=== PATIENT | male | born 1950 | race Caucasian/White ===

== ENCOUNTER 2016-05-06 09:10 | Inpatient (IN) | payer MEDICARE ==
[~2016-05-06] VITALS: Ht 179.1 cm; Wt 68.9 kg
[2016-05-06] MEDS ORDERED: ALBU6.7H IH (10:35)
[2016-05-06 11:11] VITALS: BP 108/71
[2016-05-06] MEDS ORDERED: ASPI81TA2 PO (11:25)
[2016-05-06] MEDS ORDERED: ATOR40TA59 PO (11:26)
[2016-05-06] MEDS ORDERED: FOLI1TAB16 PO (11:26)
[2016-05-06] MEDS ORDERED: INSU100C SQ (11:27)
[2016-05-06] MEDS ORDERED: INSU100V8 SQ (11:28)
[2016-05-06] MEDS ORDERED: NAFC2FRO IV (11:29)
[2016-05-06] MEDS ORDERED: MELA3TAB PO (11:30)
[2016-05-06] MEDS ORDERED: METF10002 PO (11:31)
[2016-05-06] MEDS ORDERED: MIRT30TA3 PO (11:32)
[2016-05-06] MEDS ORDERED: MULT-208 PO (11:32)
[2016-05-06] MEDS ORDERED: NITR0.4T SL (11:33)
[2016-05-06] MEDS ORDERED: NYST15CR TP (11:34)
[2016-05-06] MEDS ORDERED: PANT40TA5 PO (11:34)
[2016-05-06] MEDS ORDERED: SAXA5TAB PO (11:35)
[2016-05-06] MEDS ORDERED: TAMS0.4C2 PO (11:36)
[2016-05-06] MEDS ORDERED: TIOT18CA IH (11:37)
[2016-05-06] MEDS ORDERED: THIA100T8 PO (11:37)
[2016-05-06] MEDS ORDERED: TRAZ100T12 PO (11:38)
[2016-05-06] MEDS ORDERED: ZINC57OI TP (11:40)
[2016-05-06] MEDS ORDERED: ALBUTEROL SULFATE 8GM INHALER. IH PRN (12:45)
[2016-05-06] MEDS ORDERED: NITROGLYCERIN SUBLINGUAL 0.4 MG BOTTLE OF 25. SL SCH (12:45)
[2016-05-06] MEDS ORDERED: ACETAMINOPHEN 650 MG TABLET.ER PO PRN (13:00)
[2016-05-06] MEDS ORDERED: ALBUTEROL SULFATE 2.5 MG/3 ML NEBU. NEB PRN (13:15)
[2016-05-06] MEDS ORDERED: ZINC OXIDE 20% TOPICAL OINTMENT 28GM TUBE. TP PRN (13:15)
[2016-05-06] MEDS ORDERED: IV NORMAL SALINE 250ML 250 ML ONE (15:37)
[2016-05-06] MEDS: NAFCILLIN 2 GM in IV NORMAL SALINE 100ML 100 ML IV SCH ×2 (15:42→20:35)
[2016-05-06] MEDS ORDERED: NAFCILLIN IN DEXTROSE ISO OSM IV SCH (16:00)
[2016-05-06] MEDS: IPRATRPIUM/ALBUTEROL 0.5/2.5MG 3 ML NEBU. NEB SCH ×2 (16:00→20:00)
[2016-05-06] MEDS ORDERED: [UNRECOGNIZED DRUG - OTHER] IV SCH (16:00)
[2016-05-06] MEDS: METFORMIN 500 MG TABLET. PO SCH (17:55)
[2016-05-06] MEDS: INSULIN ASPART 300 UNITS/3 ML INSULN.PEN SQ SCH (19:31)
[2016-05-06] MEDS: ATORVASTATIN CALCIUM 20 MG TABLET PO SCH (20:44)
[2016-05-06] MEDS: MIRTAZAPINE 30 MG TABLET PO SCH (20:44)
[2016-05-06] MEDS: traZODone 100 MG TABLET. PO SCH (20:44)
[2016-05-06] MEDS: MELATONIN 3 MG TABLET PO SCH (20:45)
[2016-05-06] MEDS: NYSTATIN 100,000 UNIT/GM TOPICAL CREAM 15GM TUBE. TP SCH (20:45)
[2016-05-06] MEDS: INSULIN DETEMIR 300 UNITS/3 ML INSULN.PEN. SQ SCH (20:49)
[2016-05-06 23:25] VITALS: BP 108/65
[2016-05-07] MEDS: NAFCILLIN 2 GM in IV NORMAL SALINE 100ML 100 ML IV SCH ×7 (00:42→23:53)
[2016-05-07] MEDS: IPRATRPIUM/ALBUTEROL 0.5/2.5MG 3 ML NEBU. NEB SCH ×4 (05:59→20:00)
[2016-05-07] MEDS: PANTOPRAZOLE 40 MG TABLET. PO SCH (06:02)
[2016-05-07 06:10] VITALS: BP 97/66
[2016-05-07] MEDS ORDERED: ALTEPLASE 2 MG VIAL INT CAT ONE (07:30)
[2016-05-07] MEDS: INSULIN ASPART 300 UNITS/3 ML INSULN.PEN SQ SCH ×3 (07:30→16:30)
[2016-05-07] MEDS: ASPIRIN 81 MG TAB.CHEW PO SCH (08:36)
[2016-05-07] MEDS: FOLIC ACID 1 MG TABLET PO SCH (08:36)
[2016-05-07] MEDS: TAMSULOSIN 0.4 MG CAP.ER.24H. PO SCH (08:36)
[2016-05-07] MEDS: THIAMINE 100 MG TABLET. PO SCH (08:36)
[2016-05-07] MEDS: METFORMIN 500 MG TABLET. PO SCH ×2 (08:36→16:26)
[2016-05-07] MEDS: LINAGLIPTIN 5 MG TABLET PO SCH (08:36)
[2016-05-07 08:58] LABS: BASO % 0 % (0-3); EOS # 0.4 x10^3/uL (0.0-0.7); EOS % 4 % (0-3); HEMATOCRIT 27.9 % (39.0-53.0); HEMOGLOBIN 9.5 g/dL (13.0-17.5); LYMPH % 31 % (24-48); MEAN CORPUSCULAR HEMOGLOBIN 34 pg (25-35); MEAN CORPUSCULAR HGB CONC 34 g/dL (31-37); MEAN CORPUSCULAR VOLUME 98 fL (79-100); MONO # 1.1 x10^3/uL (0.0-1.1); MONO % 11 % (0-9); NEUT # 5.2 x10^3uL (1.8-7.7); NEUT % 54 % (31-73); PLATELET COUNT 356 x10^3/uL (140-400); RED BLOOD COUNT 2.84 x10^6/uL (4.30-5.70); RED CELL DISTRIBUTION WIDTH 14.2 % (11.5-14.5); WHITE BLOOD COUNT 9.7 x10^3/uL (4.0-11.0)
[2016-05-07] MEDS: NYSTATIN 100,000 UNIT/GM TOPICAL CREAM 15GM TUBE. TP SCH ×2 (09:00→19:49)
[2016-05-07 09:24] LABS: ALBUMIN 1.7 g/dL (3.4-5.0); ALBUMIN/GLOBULIN RATIO 0.3 (1.0-1.7); CALCIUM 7.7 mg/dL (8.5-10.1); CREATININE 0.9 mg/dL (0.7-1.3); GFR 84.7; MAGNESIUM 1.3 mg/dL (1.8-2.4); POTASSIUM 3.1 mmol/L (3.5-5.1); TOTAL BILIRUBIN 0.4 mg/dL (0.2-1.0); TOTAL PROTEIN 7.3 g/dL (6.4-8.2)
--- NOTE | 2016-05-07 11:59 | HP ---
ADMIT DATE: 05/06/2016 SWING BED HISTORY AND PHYSICAL HISTORY OF PRESENT ILLNESS: This is a 65-year-old male who came over to the swing bed status on 05/06/2016. I also saw him yesterday on 05/06/2016. He has come with status post MSSA bacteremia with necrotizing pneumonia. He requires another 2 weeks Nafcillin IV and has come over for that as well as physical therapy. His chart was reviewed and his care was discussed with the nursing staff and the patient. Stop date for his nafcillin is 05/21/2016. PAST MEDICAL HISTORY: MSSA bacteremia; hypertension; impotence; reflux; type 2 diabetes; nicotine dependence; hepatitis C; tinea pedis; malnutrition; remote history of alcoholism; remote history of other substance abuse; stage 2 pressure ulcer on his sacrum, which has healed evidently; and insomnia. Also poor dentition. ALLERGIES: AZITHROMYCIN. MEDICATIONS: Reviewed by myself and are available on the MAR. REVIEW OF SYSTEMS: The patient states he started to feel pretty good. He did have a long road back from his illness, but he is not very happy about having to be here, for 2 weeks of antibiotics and was somewhat uncooperative with PT and OT. Has no specific complaints currently. OBJECTIVE: VITAL SIGNS: Blood pressure is 108/71, pulse 120, temperature 98.2, pulse ox is 94% on room air. GENERAL: The patient is seated and was ambulating in the garner previously. HEENT: His hearing is normal. His eyes are clear. His nose is patent. His throat was clear. He has several teeth missing and in poor condition. NECK: Supple, without adenopathy. LUNGS: Clear to auscultation. CARDIOVASCULAR: Rapid rhythm and rate. The patient states he has always had a rapid pulse. ABDOMEN: Soft, nontender. EXTREMITIES: Without edema. Sacral area has a healed pressure ulcer with no open areas. NEUROLOGIC: He is intact. Mood is appropriate. He has PICC line in place. ASSESSMENT: 1. Methicillin-sensitive Staphylococcus aureus bacteremia. 2. Necrotizing pneumonia. 3. Insomnia. 4. Malnutrition. 5. Type 2 diabetes. 6. Tachycardia, chronic. 7. Insomnia. 8. Malnutrition. 9. Alcoholism and has been without a drink now for over a month. PLAN: Continue IV therapy, physical therapy, monitor him for other problems. VALERIANO ALEJANDRO DO DR: Sg JOB#: [id number] / [id number]
[2016-05-07] MEDS: MAGNESIUM OXIDE 400 MG TABLET PO SCH ×2 (12:26→16:26)
[2016-05-07] MEDS: POTASSIUM CHLORIDE 20 MEQ TABLET.ER. PO SCH ×2 (12:26→16:26)
[2016-05-07 14:40] VITALS: BP 110/76
[2016-05-07] MEDS: traZODone 100 MG TABLET. PO SCH (19:47)
[2016-05-07] MEDS: MIRTAZAPINE 30 MG TABLET PO SCH (19:47)
[2016-05-07] MEDS: ATORVASTATIN CALCIUM 20 MG TABLET PO SCH (19:48)
[2016-05-07] MEDS: MELATONIN 3 MG TABLET PO SCH (19:49)
[2016-05-07] MEDS: INSULIN DETEMIR 300 UNITS/3 ML INSULN.PEN. SQ SCH (19:49)
[2016-05-08] MEDS ORDERED: IV NORMAL SALINE 250ML 250 ML ONE (01:24)
[2016-05-08] MEDS: NAFCILLIN 2 GM in IV NORMAL SALINE 100ML 100 ML IV SCH ×5 (04:09→20:33)
[2016-05-08 05:23] VITALS: BP 118/75
[2016-05-08] MEDS: IPRATRPIUM/ALBUTEROL 0.5/2.5MG 3 ML NEBU. NEB SCH ×4 (05:41→20:00)
[2016-05-08] MEDS: PANTOPRAZOLE 40 MG TABLET. PO SCH (05:50)
[2016-05-08 06:31] LABS: CALCIUM 7.6 mg/dL (8.5-10.1); CREATININE 0.9 mg/dL (0.7-1.3); GFR 84.7; MAGNESIUM 1.2 mg/dL (1.8-2.4); POTASSIUM 3.8 mmol/L (3.5-5.1)
[2016-05-08] MEDS ORDERED: MAGNESIUM SULFATE 2GM 50 ML IV ONE (08:00)
[2016-05-08] MEDS: TAMSULOSIN 0.4 MG CAP.ER.24H. PO SCH (08:17)
[2016-05-08] MEDS: ASPIRIN 81 MG TAB.CHEW PO SCH (08:17)
[2016-05-08] MEDS: THIAMINE 100 MG TABLET. PO SCH (08:17)
[2016-05-08] MEDS: LINAGLIPTIN 5 MG TABLET PO SCH (08:17)
[2016-05-08] MEDS: FOLIC ACID 1 MG TABLET PO SCH (08:18)
[2016-05-08] MEDS: METFORMIN 500 MG TABLET. PO SCH ×2 (08:18→16:45)
[2016-05-08] MEDS: NYSTATIN 100,000 UNIT/GM TOPICAL CREAM 15GM TUBE. TP SCH ×2 (08:19→20:34)
[2016-05-08] MEDS: INSULIN ASPART 300 UNITS/3 ML INSULN.PEN SQ SCH ×3 (08:29→16:49)
[2016-05-08] MEDS: POTASSIUM CHLORIDE 20 MEQ TABLET.ER. PO SCH ×2 (11:56→16:44)
[2016-05-08] MEDS: MAGNESIUM OXIDE 400 MG TABLET PO SCH ×2 (11:56→16:45)
[2016-05-08 19:53] VITALS: BP 118/77
[2016-05-08] MEDS: MIRTAZAPINE 30 MG TABLET PO SCH (20:33)
[2016-05-08] MEDS: traZODone 100 MG TABLET. PO SCH (20:33)
[2016-05-08] MEDS: ATORVASTATIN CALCIUM 20 MG TABLET PO SCH (20:33)
[2016-05-08] MEDS: MELATONIN 3 MG TABLET PO SCH (20:33)
[2016-05-08] MEDS: INSULIN DETEMIR 300 UNITS/3 ML INSULN.PEN. SQ SCH (20:34)
[2016-05-09] MEDS: NAFCILLIN 2 GM in IV NORMAL SALINE 100ML 100 ML IV SCH ×7 (00:16→23:33)
[2016-05-09] MEDS: PANTOPRAZOLE 40 MG TABLET. PO SCH (05:51)
[2016-05-09 06:06] VITALS: BP 115/71
[2016-05-09] MEDS: IPRATRPIUM/ALBUTEROL 0.5/2.5MG 3 ML NEBU. NEB SCH ×4 (08:00→20:00)
[2016-05-09] MEDS: METFORMIN 500 MG TABLET. PO SCH ×2 (08:05→16:48)
[2016-05-09] MEDS: INSULIN ASPART 300 UNITS/3 ML INSULN.PEN SQ SCH ×3 (08:18→16:50)
[2016-05-09] MEDS: MAGNESIUM OXIDE 400 MG TABLET PO SCH ×2 (09:51→16:48)
[2016-05-09] MEDS: LINAGLIPTIN 5 MG TABLET PO SCH (09:51)
[2016-05-09] MEDS: ASPIRIN 81 MG TAB.CHEW PO SCH (09:52)
[2016-05-09] MEDS: POTASSIUM CHLORIDE 20 MEQ TABLET.ER. PO SCH ×2 (09:53→16:48)
[2016-05-09] MEDS: THIAMINE 100 MG TABLET. PO SCH (09:53)
[2016-05-09] MEDS: TAMSULOSIN 0.4 MG CAP.ER.24H. PO SCH (09:53)
[2016-05-09] MEDS: FOLIC ACID 1 MG TABLET PO SCH (09:53)
[2016-05-09] MEDS: NYSTATIN 100,000 UNIT/GM TOPICAL CREAM 15GM TUBE. TP SCH ×2 (09:53→20:22)
[2016-05-09] MEDS: BENZOCAINE/MENTHOL LOZENGE 16'S BOX. PO PRN ×2 (09:56→21:41)
[2016-05-09 11:10] VITALS: BP 145/78
[2016-05-09 20:09] VITALS: BP 105/71
[2016-05-09] MEDS: MIRTAZAPINE 30 MG TABLET PO SCH (20:21)
[2016-05-09] MEDS: MELATONIN 3 MG TABLET PO SCH (20:21)
[2016-05-09] MEDS: ATORVASTATIN CALCIUM 20 MG TABLET PO SCH (20:21)
[2016-05-09] MEDS: traZODone 100 MG TABLET. PO SCH (20:22)
[2016-05-09] MEDS: INSULIN DETEMIR 300 UNITS/3 ML INSULN.PEN. SQ SCH (20:31)
[2016-05-09] MEDS: CALCIUM CARBONATE 500 MG TAB.CHEW PO PRN (23:23)
[2016-05-09] MEDS ORDERED: IV NORMAL SALINE 100ML 100 ML ONE (23:50)
[2016-05-10] MEDS: NAFCILLIN 2 GM in IV NORMAL SALINE 100ML 100 ML IV SCH ×6 (01:38→23:23)
[2016-05-10] MEDS: PANTOPRAZOLE 40 MG TABLET. PO SCH (05:51)
[2016-05-10 06:31] VITALS: BP 113/74
[2016-05-10] MEDS: IPRATRPIUM/ALBUTEROL 0.5/2.5MG 3 ML NEBU. NEB SCH ×4 (07:06→20:00)
[2016-05-10] MEDS: THIAMINE 100 MG TABLET. PO SCH (08:18)
[2016-05-10] MEDS: LINAGLIPTIN 5 MG TABLET PO SCH (08:18)
[2016-05-10] MEDS: ASPIRIN 81 MG TAB.CHEW PO SCH (08:18)
[2016-05-10] MEDS: METFORMIN 500 MG TABLET. PO SCH ×2 (08:18→16:18)
[2016-05-10] MEDS: FOLIC ACID 1 MG TABLET PO SCH (08:19)
[2016-05-10] MEDS: NYSTATIN 100,000 UNIT/GM TOPICAL CREAM 15GM TUBE. TP SCH ×2 (08:19→19:45)
[2016-05-10] MEDS: TAMSULOSIN 0.4 MG CAP.ER.24H. PO SCH (08:19)
[2016-05-10] MEDS: INSULIN ASPART 300 UNITS/3 ML INSULN.PEN SQ SCH ×4 (08:24→16:30)
[2016-05-10 10:47] LABS: ALBUMIN 1.8 g/dL (3.4-5.0); ALBUMIN/GLOBULIN RATIO 0.3 (1.0-1.7); CREATININE 0.8 mg/dL (0.7-1.3); MAGNESIUM 1.5 mg/dL (1.8-2.4); POTASSIUM 4.1 mmol/L (3.5-5.1); TOTAL BILIRUBIN 0.5 mg/dL (0.2-1.0); TOTAL PROTEIN 7.5 g/dL (6.4-8.2)
[2016-05-10] MEDS: MAGNESIUM OXIDE 400 MG TABLET PO SCH ×2 (11:58→16:18)
[2016-05-10] MEDS: POTASSIUM CHLORIDE 20 MEQ TABLET.ER. PO SCH ×2 (11:58→16:18)
[2016-05-10] MEDS: GUAIFENESIN DM 600/30MG TAB.ER.12H. PO SCH ×2 (12:38→19:43)
[2016-05-10 15:11] VITALS: BP 99/70
[2016-05-10 19:41] VITALS: BP 115/73
[2016-05-10] MEDS: MELATONIN 3 MG TABLET PO SCH (19:43)
[2016-05-10] MEDS: traZODone 100 MG TABLET. PO SCH (19:43)
[2016-05-10] MEDS: ATORVASTATIN CALCIUM 20 MG TABLET PO SCH (19:43)
[2016-05-10] MEDS: MIRTAZAPINE 30 MG TABLET PO SCH (19:44)
[2016-05-10] MEDS: INSULIN DETEMIR 300 UNITS/3 ML INSULN.PEN. SQ SCH (19:49)
[2016-05-10] MEDS ORDERED: IV NORMAL SALINE 100ML 100 ML ONE (23:20)
--- NOTE | 2016-05-11 01:00 | PN ---
DATE: 05/10/2016 SUBJECTIVE: This is a 65-year-old male who is on swing bed status for IV antibiotics for MSSA bacteremia. He has been somewhat uncooperative, refusing insulin and such, but he has been complaining of a sore throat and his strep screen was negative. Certainly, the antibiotic that he is on nafcillin would cover his strep throat, and I did explain that to him. He was also on multiple other antibiotics while he was hospitalized. He has been having some problems with low magnesium as well and is being rechecked today. He received some IV magnesium yesterday and was started on p.o. magnesium on the . OBJECTIVE: VITAL SIGNS: Temperature is 98.7, pulse 101, blood pressure 113/74, pulse ox is 95% on room air. GENERAL: The patient does not appear ill. HEENT: His posterior pharynx has a little bit of postnasal drip, otherwise not red or inflamed. No exudate. NECK: Supple. There is no adenopathy. LUNGS: Clear. CARDIOVASCULAR: Mildly regular rhythm and rate. Mildly tachycardic. This was not new. LABORATORY DATA: His magnesium today is 1.5. Glucoses are in mid 100s and strep screen negative. ASSESSMENT: 1. Viral pharyngitis. 2. Postnasal drip. 3. Noncompliance with regimen. 4. Methicillin susceptible Staphylococcus aureus bacteremia on nafcillin until 05/21/2016. 5. Hypomagnesemia. PLAN: Mucinex DM, throat lozenges if he needs it. Replace his magnesium. Place his magnesium, encourage him to follow up with the current plan of care. VALERIANO ALEJANDRO DO DR: AIDA/lesvia JOB#: [id number] / [id number]
[2016-05-11] MEDS: NAFCILLIN 2 GM in IV NORMAL SALINE 100ML 100 ML IV SCH ×5 (03:54→19:56)
[2016-05-11 05:03] VITALS: BP 108/73
[2016-05-11] MEDS: PANTOPRAZOLE 40 MG TABLET. PO SCH (05:26)
[2016-05-11] MEDS: INSULIN ASPART 300 UNITS/3 ML INSULN.PEN SQ SCH ×3 (07:30→16:30)
[2016-05-11] MEDS: IPRATRPIUM/ALBUTEROL 0.5/2.5MG 3 ML NEBU. NEB SCH ×4 (08:00→20:00)
[2016-05-11] MEDS: LINAGLIPTIN 5 MG TABLET PO SCH (09:22)
[2016-05-11] MEDS: TAMSULOSIN 0.4 MG CAP.ER.24H. PO SCH (09:22)
[2016-05-11] MEDS: NYSTATIN 100,000 UNIT/GM TOPICAL CREAM 15GM TUBE. TP SCH ×2 (09:22→19:57)
[2016-05-11] MEDS: METFORMIN 500 MG TABLET. PO SCH ×2 (09:22→16:52)
[2016-05-11] MEDS: ASPIRIN 81 MG TAB.CHEW PO SCH (09:23)
[2016-05-11] MEDS: FOLIC ACID 1 MG TABLET PO SCH (09:23)
[2016-05-11] MEDS: MAGNESIUM OXIDE 400 MG TABLET PO SCH ×2 (09:23→16:52)
[2016-05-11] MEDS: POTASSIUM CHLORIDE 20 MEQ TABLET.ER. PO SCH ×2 (09:23→16:52)
[2016-05-11] MEDS: THIAMINE 100 MG TABLET. PO SCH (09:23)
[2016-05-11] MEDS: GUAIFENESIN DM 600/30MG TAB.ER.12H. PO SCH ×2 (09:23→19:53)
[2016-05-11] MEDS ORDERED: IV NORMAL SALINE 250ML 250 ML ONE (12:25)
[2016-05-11 19:20] VITALS: BP 111/77
[2016-05-11] MEDS: CALCIUM CARBONATE 500 MG TAB.CHEW PO PRN (19:53)
[2016-05-11] MEDS: traZODone 100 MG TABLET. PO SCH (19:54)
[2016-05-11] MEDS: MELATONIN 3 MG TABLET PO SCH (19:54)
[2016-05-11] MEDS: MIRTAZAPINE 30 MG TABLET PO SCH (19:54)
[2016-05-11] MEDS: ATORVASTATIN CALCIUM 20 MG TABLET PO SCH (19:54)
[2016-05-11] MEDS: INSULIN DETEMIR 300 UNITS/3 ML INSULN.PEN. SQ SCH (19:57)
[2016-05-12] MEDS: NAFCILLIN 2 GM in IV NORMAL SALINE 100ML 100 ML IV SCH ×7 (00:23→23:54)
[2016-05-12] MEDS: PANTOPRAZOLE 40 MG TABLET. PO SCH (04:20)
[2016-05-12 05:02] VITALS: BP 101/71
[2016-05-12 06:23] LABS: HEMATOCRIT 28.2 % (39.0-53.0); HEMOGLOBIN 9.6 g/dL (13.0-17.5); RED BLOOD COUNT 2.88 x10^6/uL (4.30-5.70); RED CELL DISTRIBUTION WIDTH 14.8 % (11.5-14.5); WHITE BLOOD COUNT 10.2 x10^3/uL (4.0-11.0)
[2016-05-12 06:45] LABS: ALBUMIN 1.7 g/dL (3.4-5.0); ALBUMIN/GLOBULIN RATIO 0.3 (1.0-1.7); CREATININE 0.9 mg/dL (0.7-1.3); GFR 84.7; MAGNESIUM 1.3 mg/dL (1.8-2.4); POTASSIUM 3.5 mmol/L (3.5-5.1); TOTAL BILIRUBIN 0.5 mg/dL (0.2-1.0)
[2016-05-12] MEDS ORDERED: MAGNESIUM SULFATE 2GM 50 ML IV ONE ×2 (07:15→07:45)
[2016-05-12] MEDS: INSULIN ASPART 300 UNITS/3 ML INSULN.PEN SQ SCH ×3 (07:30→16:30)
[2016-05-12] MEDS: IPRATRPIUM/ALBUTEROL 0.5/2.5MG 3 ML NEBU. NEB SCH ×4 (08:00→20:00)
[2016-05-12] MEDS: TAMSULOSIN 0.4 MG CAP.ER.24H. PO SCH (08:12)
[2016-05-12] MEDS: LINAGLIPTIN 5 MG TABLET PO SCH (08:12)
[2016-05-12] MEDS: ASPIRIN 81 MG TAB.CHEW PO SCH (08:12)
[2016-05-12] MEDS: METFORMIN 500 MG TABLET. PO SCH ×2 (08:12→16:39)
[2016-05-12] MEDS: FOLIC ACID 1 MG TABLET PO SCH (08:12)
[2016-05-12] MEDS: THIAMINE 100 MG TABLET. PO SCH (08:12)
[2016-05-12] MEDS: GUAIFENESIN DM 600/30MG TAB.ER.12H. PO SCH ×2 (08:12→20:25)
[2016-05-12] MEDS: NYSTATIN 100,000 UNIT/GM TOPICAL CREAM 15GM TUBE. TP SCH ×2 (08:13→20:25)
[2016-05-12] MEDS: POTASSIUM CHLORIDE 20 MEQ TABLET.ER. PO SCH ×2 (11:37→16:40)
[2016-05-12] MEDS: MAGNESIUM OXIDE 400 MG TABLET PO SCH ×2 (11:37→16:40)
[2016-05-12] MEDS: CALCIUM CARBONATE 500 MG TAB.CHEW PO PRN (19:13)
[2016-05-12 19:17] VITALS: BP 100/65
[2016-05-12] MEDS: MELATONIN 3 MG TABLET PO SCH (20:25)
[2016-05-12] MEDS: MIRTAZAPINE 30 MG TABLET PO SCH (20:25)
[2016-05-12] MEDS: traZODone 100 MG TABLET. PO SCH (20:25)
[2016-05-12] MEDS: ATORVASTATIN CALCIUM 20 MG TABLET PO SCH (20:25)
[2016-05-12] MEDS: INSULIN DETEMIR 300 UNITS/3 ML INSULN.PEN. SQ SCH (21:00)
--- NOTE | 2016-05-12 21:41 | PN ---
DATE: 05/12/2016 SUBJECTIVE: The patient is resting, slightly propped up in bed, sleeping comfortably in no apparent distress. On questioning him, he denied any complaint. The nursing staff stated that his magnesium was low this morning at 1.3 mg/dL and was given 2 grams of magnesium sulfate. He is already on magnesium oxide 400 mg twice a day. The patient himself denied any complaint. OBJECTIVE: GENERAL: When I examined him, he was resting flat, slightly propped up in bed, in no apparent distress. He was slightly pale, but no jaundice, cyanosis, or thyromegaly. No jugular venous distention. No limb edema. VITAL SIGNS: His heart rate was 81, blood pressure was 101/71, temperature was 98.3, respiratory rate was 18, and oxygen saturation was 100% on room air. The rest of clinical examination is unremarkable. His intake over the last 24 hours was 1660, output was 1800. LABORATORY DATA: As of this morning, his white cell count was 10,200, hemoglobin 9.6, hematocrit 28.2, MCV 98 and platelet count of 466,000. His chemistry showed a serum sodium 138, potassium 3.5, chloride 103, bicarbonate 30, anion gap of 5, BUN 6, creatinine 0.9. Estimated GFR was 85 mL per minute. His glucose 151, calcium was 8, magnesium was 1.3. Total bilirubin, AST, ALT, alkaline phosphatase were normal. His total protein was 7, albumin was 1.7. ASSESSMENT: 1. Methicillin-sensitive Staphylococcus aureus bacteremia for which he continues to be on nafcillin 2 grams IV every 4 hours. 2. Necrotizing pneumonitis. 3. Type 2 diabetes mellitus. 4. Severe protein-calorie malnutrition. His serum albumin is only 1.7. 5. Alcoholism. 6. Severe hypomagnesemia. His serum magnesium is only 1.3. PLAN: My plan is to repeat his lab work as ordered by his primary care physician at the [facility]. I will add also TSH, serum protein, prothrombin time and ammonia. MAULIK HERNANDES MD DR: GABRIELLA/lesvia JOB#: [id number] / [id number]
[2016-05-12] MEDS ORDERED: IV NORMAL SALINE 100ML 100 ML ONE (23:47)
[2016-05-13] MEDS: NAFCILLIN 2 GM in IV NORMAL SALINE 100ML 100 ML IV SCH ×6 (03:56→23:37)
[2016-05-13 04:59] LABS: BASO # 0.1 x10^3/uL (0.0-0.2); BASO % 1 % (0-3); EOS # 0.4 x10^3/uL (0.0-0.7); EOS % 5 % (0-3); HEMATOCRIT 27.8 % (39.0-53.0); HEMOGLOBIN 9.4 g/dL (13.0-17.5); LYMPH # 4.3 x10^3/uL (1.0-4.8); LYMPH % 52 % (24-48); MEAN CORPUSCULAR HEMOGLOBIN 34 pg (25-35); MEAN CORPUSCULAR HGB CONC 34 g/dL (31-37); MEAN CORPUSCULAR VOLUME 99 fL (79-100); MONO # 0.9 x10^3/uL (0.0-1.1); MONO % 11 % (0-9); NEUT # 2.5 x10^3uL (1.8-7.7); NEUT % 30 % (31-73); PLATELET COUNT 422 x10^3/uL (140-400); RED BLOOD COUNT 2.82 x10^6/uL (4.30-5.70); RED CELL DISTRIBUTION WIDTH 15.2 % (11.5-14.5); WHITE BLOOD COUNT 8.2 x10^3/uL (4.0-11.0)
[2016-05-13 05:06] VITALS: BP 115/70
[2016-05-13 05:14] LABS: ALBUMIN 1.7 g/dL (3.4-5.0); ALBUMIN/GLOBULIN RATIO 0.3 (1.0-1.7); C REACTIVE PROTEIN 16.4 mg/L (0-3.3); CALCIUM 7.8 mg/dL (8.5-10.1); CREATININE 0.8 mg/dL (0.7-1.3); POTASSIUM 4.2 mmol/L (3.5-5.1); TOTAL BILIRUBIN 0.5 mg/dL (0.2-1.0)
[2016-05-13] MEDS: PANTOPRAZOLE 40 MG TABLET. PO SCH ×3 (05:25→20:32)
[2016-05-13 05:57] LABS: SEDIMENTATION RATE 98 (0-15)
[2016-05-13] MEDS: INSULIN ASPART 300 UNITS/3 ML INSULN.PEN SQ SCH ×2 (07:30→11:30)
[2016-05-13] MEDS: IPRATRPIUM/ALBUTEROL 0.5/2.5MG 3 ML NEBU. NEB SCH ×4 (08:00→20:00)
[2016-05-13] MEDS: MAGNESIUM OXIDE 400 MG TABLET PO SCH ×2 (08:58→16:51)
[2016-05-13] MEDS: THIAMINE 100 MG TABLET. PO SCH (08:58)
[2016-05-13] MEDS: METFORMIN 500 MG TABLET. PO SCH ×2 (08:58→16:51)
[2016-05-13] MEDS: POTASSIUM CHLORIDE 20 MEQ TABLET.ER. PO SCH ×2 (08:58→16:52)
[2016-05-13] MEDS: TAMSULOSIN 0.4 MG CAP.ER.24H. PO SCH (08:58)
[2016-05-13] MEDS: GUAIFENESIN DM 600/30MG TAB.ER.12H. PO SCH ×2 (08:58→19:56)
[2016-05-13] MEDS: FOLIC ACID 1 MG TABLET PO SCH (08:59)
[2016-05-13] MEDS: ASPIRIN 81 MG TAB.CHEW PO SCH (08:59)
[2016-05-13] MEDS: LINAGLIPTIN 5 MG TABLET PO SCH (08:59)
[2016-05-13] MEDS: NYSTATIN 100,000 UNIT/GM TOPICAL CREAM 15GM TUBE. TP SCH ×2 (09:00→19:55)
[2016-05-13] MEDS: CALCIUM CARBONATE 500 MG TAB.CHEW PO PRN (09:00)
[2016-05-13 10:54] VITALS: BP 102/70
[2016-05-13] MEDS ORDERED: IV NORMAL SALINE 250ML 250 ML ONE (19:45)
[2016-05-13] MEDS: MIRTAZAPINE 30 MG TABLET PO SCH (19:56)
[2016-05-13] MEDS: ATORVASTATIN CALCIUM 20 MG TABLET PO SCH (19:56)
[2016-05-13] MEDS: MELATONIN 3 MG TABLET PO SCH (19:56)
[2016-05-13] MEDS: traZODone 100 MG TABLET. PO SCH (19:56)
[2016-05-13 20:00] VITALS: BP 129/81
--- NOTE | 2016-05-14 01:07 | PN ---
DATE: 05/13/2016 SUBJECTIVE: The patient was seen today for multiple complaints including heartburn that is not completely resolved. He also has been refusing his insulin and his magnesium was low and was given magnesium sulfate. OBJECTIVE: GENERAL: On examining him, he looked well and was clearly in no apparent respiratory distress, slightly pale, but no jaundice, cyanosis or thyromegaly. No jugular venous distention. No limb edema. VITAL SIGNS: His heart rate was 115, blood pressure was 102/70, temperature was 98.1, respiratory rate was 20 and oxygen saturation was 99%. HEAD, EYES, EARS, NOSE AND THROAT: Normocephalic, atraumatic. NECK: Supple. HEART: Showed normal first and second heart sounds with no gallop, rub or murmur. CHEST: Clear to auscultation. No crepitation or rhonchi. ABDOMEN: Distended, soft, nontender. No guarding or rigidity. No organomegaly. Hernial orifices intact. Bowel sounds normal. NEUROLOGIC: He was awake, alert, responding appropriately. Cranial nerves intact. He moves extremities without difficulty, ambulates without assistance or assistive devices. LABORATORY DATA: His blood sugar seems to be well controlled on metformin and Tradjenta. He did receive 2 grams of magnesium sulfate and he is now on magnesium oxide 400 mg 3 times a day. PLAN: My plan is to increase his Protonix to twice a day and add 2 tablets after meals. I will check hemoglobin A1c, magnesium and TSH. As he has persistent tachycardia, we will decide on further management accordingly. MAULIK HERNANDES MD DR: GABRIELLA/lesvia JOB#: [id number] / [id number]
[2016-05-14] MEDS: NAFCILLIN 2 GM in IV NORMAL SALINE 100ML 100 ML IV SCH ×6 (04:00→23:57)
[2016-05-14] MEDS: IPRATRPIUM/ALBUTEROL 0.5/2.5MG 3 ML NEBU. NEB SCH ×4 (05:21→20:00)
[2016-05-14 05:53] VITALS: BP 114/76
[2016-05-14] MEDS: PANTOPRAZOLE 40 MG TABLET. PO SCH ×2 (06:43→20:12)
[2016-05-14] MEDS: POTASSIUM CHLORIDE 20 MEQ TABLET.ER. PO SCH ×2 (07:54→16:10)
[2016-05-14] MEDS: METFORMIN 500 MG TABLET. PO SCH ×2 (07:54→16:10)
[2016-05-14] MEDS: GUAIFENESIN DM 600/30MG TAB.ER.12H. PO SCH ×2 (07:54→20:14)
[2016-05-14] MEDS: ASPIRIN 81 MG TAB.CHEW PO SCH (07:55)
[2016-05-14] MEDS: THIAMINE 100 MG TABLET. PO SCH (07:55)
[2016-05-14] MEDS: FOLIC ACID 1 MG TABLET PO SCH (07:55)
[2016-05-14] MEDS: MAGNESIUM OXIDE 400 MG TABLET PO SCH ×4 (07:55→20:12)
[2016-05-14] MEDS: TAMSULOSIN 0.4 MG CAP.ER.24H. PO SCH (07:55)
[2016-05-14] MEDS: LINAGLIPTIN 5 MG TABLET PO SCH (07:55)
[2016-05-14] MEDS: NYSTATIN 100,000 UNIT/GM TOPICAL CREAM 15GM TUBE. TP SCH ×2 (07:59→20:11)
[2016-05-14] MEDS ORDERED: MAGNESIUM SULFATE 2GM 50 ML IV ONE (10:30)
[2016-05-14 14:41] VITALS: BP 126/78
[2016-05-14 17:59] LABS: THYROXINE 2.7 ug/dL (4.5-12.0)
[2016-05-14 19:42] VITALS: BP 109/63
[2016-05-14] MEDS: MIRTAZAPINE 30 MG TABLET PO SCH (20:12)
[2016-05-14] MEDS: MELATONIN 3 MG TABLET PO SCH (20:12)
[2016-05-14] MEDS: ATORVASTATIN CALCIUM 20 MG TABLET PO SCH (20:12)
[2016-05-14] MEDS: traZODone 100 MG TABLET. PO SCH (20:12)
[2016-05-14] MEDS ORDERED: IV NORMAL SALINE 250ML 250 ML ONE (20:38)
[2016-05-14 21:37] LABS: HEMOGLOBIN A1C 8.1 % (4.8-5.6)
[2016-05-14 23:58] VITALS: BP 148/81
[2016-05-15] MEDS: NAFCILLIN 2 GM in IV NORMAL SALINE 100ML 100 ML IV SCH ×5 (04:14→19:34)
[2016-05-15 05:43] LABS: ALBUMIN 1.8 g/dL (3.4-5.0); ALBUMIN/GLOBULIN RATIO 0.3 (1.0-1.7); CALCIUM 7.7 mg/dL (8.5-10.1); CREATININE 0.8 mg/dL (0.7-1.3); MAGNESIUM 1.6 mg/dL (1.8-2.4); TOTAL BILIRUBIN 0.6 mg/dL (0.2-1.0)
[2016-05-15 05:56] VITALS: BP 116/82
[2016-05-15] MEDS: IPRATRPIUM/ALBUTEROL 0.5/2.5MG 3 ML NEBU. NEB SCH ×2 (08:00→10:53)
[2016-05-15] MEDS: THIAMINE 100 MG TABLET. PO SCH (08:24)
[2016-05-15] MEDS: GUAIFENESIN DM 600/30MG TAB.ER.12H. PO SCH ×2 (08:24→19:33)
[2016-05-15] MEDS: NYSTATIN 100,000 UNIT/GM TOPICAL CREAM 15GM TUBE. TP SCH (08:24)
[2016-05-15] MEDS: ASPIRIN 81 MG TAB.CHEW PO SCH (08:24)
[2016-05-15] MEDS: PANTOPRAZOLE 40 MG TABLET. PO SCH ×2 (08:25→19:34)
[2016-05-15] MEDS: METFORMIN 500 MG TABLET. PO SCH ×2 (08:25→16:50)
[2016-05-15] MEDS: FOLIC ACID 1 MG TABLET PO SCH (08:25)
[2016-05-15] MEDS: MAGNESIUM OXIDE 400 MG TABLET PO SCH ×3 (08:25→19:34)
[2016-05-15] MEDS: LINAGLIPTIN 5 MG TABLET PO SCH (08:25)
[2016-05-15] MEDS: TAMSULOSIN 0.4 MG CAP.ER.24H. PO SCH (08:25)
[2016-05-15] MEDS: POTASSIUM CHLORIDE 20 MEQ TABLET.ER. PO SCH ×2 (12:13→16:50)
--- NOTE | 2016-05-15 16:15 | ACF ---
Admission Criteria Forms GENERAL ADMISSION CRITERIA (Place 'X' for any and all applicable criteria): Admission is indicated for ANY ONE of the following: [ ]I. Hemodynamic instability as indicated by ANY ONE of the following(1)(2) (3)(4)(5): [ ]a) Vital sign abnormality not readily corrected by appropriate treatment within 12 to 24 hours indicated by ANY ONE of the following: [ ]i) Hypotension [ ]ii) Symptomatic Tachycardia unresponsive to treatment (eg , analgesia, fluids, sedation as indicated) [ ]iii) Orthostatic vital sign changes unresponsive to treatment (eg, fluids) [ ]b) Vital sign abnormality that is severe indicated by ANY ONE of the following: [ ]i) Inadequate perfusion indicated by ANY ONE of the following: [ ]1) Lactic acidosis (greater than 2 mmol/L) [ ]2) New abnormal capillary refill (greater than 3 seconds) [ ]3) Other metabolic acidosis (arterial pH less than 7.35) not otherwise explained [ ]4) Reduced urine output [ ]5) Altered mental status [ ]6) Myocardial Ischemia [ ]v) Mean arterial pressure[A] less than 60 mm Hg [ ]vi) Mean arterial pressure[A] less than 70 mm Hg after 30 minutes of appropriate treatment (eg, fluid resuscitation) [ ]vii) IV inotropic or vasopressor medication required to maintain adequate blood pressure or perfusion [ ]viii) Sustained heart rate greater than 120 beats per minute in adult or child 6 years or older[B]] [ ]II. Hypertension requiring inpatient treatment as indicated by ANY ONE of the following(6)(7)(8): [ ]a) SBP greater than 220 mm Hg or DBP greater than 120 mm Hg despite treatment [ ]b) SBP greater than 140 mm Hg or DBP greater than 100 mm Hg with evidence of acute end organ damage as indicated by ANY ONE of the following: [ ]i) Encephalopathy [ ]ii) Acute renal failure as indicated by new onset of ANY ONE of the following(9)(10)(11)(12)(13): [ ]1) A 3-fold rise in serum creatinine from baseline [ ]2) Serum creatinine greater than 4 mg/dL ( 354 micromoles/L) with acute rise greater than 0.5 mg/dL (44.2 micromoles/L) [ ]3) Reduction of more than 75% in estimated glomerular filtration rate from baseline [ ]4) Estimated glomerular filtration rate less than 35 mL/min/1.73m2 (0.59 mL/sec/1.73m2) in child up to 18 years of age [ ]5) Cessation of urine output indicated by ALL of the following: [ ]A. Adequate volume status [ ]B. Inadequate urine output as indicated by ANY ONE of the following: [ ]a. Urine output less than 0.3 mL/kg/hr for 24 hours [ ]b. Anuria (urine output less than 0.1 mL/kg/hr) for 12 hours [ ]iii) Aortic dissection [ ]iv) Myocardial ischemia [ ]v) Left ventricular heart failure [ ]vi) Retinal hemorrhage [ ]vii) Other significant finding [ ]c) Hypertension in child requiring inpatient treatment as indicated by ALL of the following(14)(15)(16): [ ]i) Outpatient treatment not effective, not available, or not appropriate [ ]ii) SBP or DBP greater than 95th percentile for age [ ]iii) Evidence of acute end organ damage as indicated by ANY ONE of the following: [ ]1) Altered mental status [ ]2) Acute renal failure as indicated by new onset of ANY ONE of the following(9)(10)(11)(12)(13): [ ]A. A 3-fold rise in serum creatinine from baseline [ ]B. Serum creatinine greater than 4 mg/dL (354 micromoles/L) with acute rise greater than 0.5 mg/dL (44.2 micromoles/L) [ ]C. Reduction of more than 75% in estimated glomerular filtration rate from baseline [ ]D. Estimated glomerular filtration rate less than 35 mL/min/1.73m2 (0.59 mL/sec/1.73m2)in child up to 18 years of age [ ]E. Cessation of urine output indicated by ALL of the following: [ ]a. Adequate volume status [ ]b. Inadequate urine output as indicated by ANY ONE of the following: [ ]1) Urine output less than 0.3 mL/kg/hr for 24 hours [ ]2) Anuria (urine output less than 0.1 mL/kg/hr) for 12 hours [ ]3) Severe headache [ ]4) Visual disturbance [ ]5) Retinal hemorrhage [ ]6) Other significant finding [ ]III. Acute cardiac or peripheral ischemia as indicated by ANY ONE of the following: [ ]a) Acute coronary syndrome(17)(18) [ ]b) Acute peripheral ischemia (eg, pulseless, cool, mottled, or cyanotic extremity)(19) [ ]IV. Cardiac arrhythmias or findings of immediate concern indicated by ANY ONE of the following(20)(21): [ ]a) Heart rhythms that are inherently dangerous or unstable indicated by ANY ONE of the following(22)(23)(24): [ ]i) Resuscitated ventricular fibrillation or cardiac arrest [ ]ii) Ventricular escape rhythm [ ]iii) Sustained ventricular tachycardia (30 seconds or more of ventricular rhythm at greater than 100 beats per minute) [ ]iv) Nonsustained ventricular tachycardia and ANY ONE of the following: [ ]1) Suspected cardiac ischemia as cause or consequence of ventricular tachycardia [ ]2) In setting of acute myocarditis [ ]b) Unstable cardiac conduction defects indicated by ANY ONE of the following(24)(25)(26): [ ]i) Type II second-degree atrioventricular block [ ]ii) Third-degree atrioventricular block [ ]iii) New-onset left bundle branch block with suspected myocardial ischemia [ ]c) Any heart rhythm and ANY ONE of the following(22)(23)(27)(28)( 29): [ ] i) Continuous long-term ECG monitoring needed (eg, initiation of drug requiring monitoring for more than 24 hours) [ ] ii) Patient has automatic implanted cardioverter defibrillator that is repeatedly firing, malfunctioning, or in need of immediate adjustment of settings beyond the scope of ambulatory or observation care. [ ]d) Heart rhythms of concern due to ANY ONE of the following: [ ]i) Hypotension [ ]ii) Respiratory distress [ ]iii) Association with other significant symptoms (eg, bradycardia with syncope or ongoing dizziness, supraventricular tachycardia with chest pain) (27)(28) (30) [ ] V. Severe heart failure as indicated by ANY ONE of the following ( 31)(32): [ ]a) Respiratory distress [ ]b) Hypotension [ ]c) Anasarca (refractory to outpatient therapy) [ ]d) Cardiac arrhythmias of immediate concern [ ]e) Myocardial ischemia [ ]. Respiratory abnormalities, including ANY ONE of the following(33)(34) (35)(36): [ ]a) Respiratory rate greater than 30 breaths per minute unresponsive to treatment [A] [ ]b) New saturation of arterial oxygen less than 90% [ ]c) New partial pressure of carbon dioxide greater than 44 mm Hg ( 5.9 kPa) [ ]d) Supplemental oxygen or respiratory treatments needed that are new or not performable at other levels of care [ ]e) New-onset cyanosis [ ]f) Inability to protect airway [ ]g) Chronic lung disease with severe deterioration (not responsive to emergency and observation care treatment as appropriate) as indicated by ANY ONE of the following(34)(36 ): [ ]i) SaO2 5% below baseline in patient with chronic hypoxemia [ ]ii) New requirement for supplemental oxygen to keep SaO2 at baseline or acceptable level [ ]iii) Required supplemental oxygen performable only in acute inpatient setting [ ]iv) Severe airflow or ventilation abnormalities [ ]v) Previously mobile patient unable to walk between rooms [ ]vi Inability to eat or sleep due to dyspnea [ ]vii) Rapid rate of exacerbation onset [ ]viii) Altered mental status ]VII. Severe airflow or ventilation abnormalities (not responsive to emergency and observation care treatment as appropriate) as indicated by ANY ONE of the following(33)(34)(35)(37): [ ]a) PCO2 greater than 42 mm Hg (5.6 kPa) and pH less than 7.35 (new ) [ ]b) Documented PCO2 increased more than 5 mm Hg (0.7 kPa) from disease baseline [ ]c) Airflow measurements [B] less than 60% of previous best or predicted (eg, peak expiratory flow rate less than 300 L/minute) despite intensive emergent treatment [C] [ ]d) Required respiratory treatments that are performable only in acute inpatient setting [ ]VIII. Impending or actual respiratory arrest ( Also use Respiratory Failure GRG for severe respiratory disease and long-term mechanical ventilation patients) [ ]IX. Neurologic abnormalities, including ANY ONE of the following: [ ]a) New findings that suggest ANY ONE of the following: [ ]i) [employer] infection(38) [ ]ii) Cerebral bleeding, ischemia, or vasospasm(39)(40) [ ]iii) Increased intracranial pressure, hydrocephalus, or cerebral edema(41)(42)(43) [ ]iv) Spinal cord injury(44) [ ]b) Uncontrolled seizures(45) [ ]c) New-onset coma (eg, Mike coma scale score less than 9) or unexplained abnormal mental status (eg, Mike coma scale score less than 14) [D](41)(46)(47) [ ]X. New-onset severe neurologic findings requiring inpatient care; examples include(42)(48)(49): [ ]a) Papilledema [ ]b) Cerebral edema [ ]c) Mass effect on CT scan [ ]XI. Suspected acute intra-abdominal process with peritoneal signs, abdominal mass, or similar findings (50)(51)(52) [ ]XII. Severe physiologic disorder remaining after emergency or observation level care (as appropriate) as indicated by ANY ONE of the following (53): [ ]a) Significant dehydration [ ]b) Diabetic ketoacidosis [ ]c) Hyperglycemic hyperosmolar state (eg, osmolality greater than 320 mOsm/kg (mmol/kg) [ ]d) Hypoglycemia [ ]e) Other (new) acid-base disorder with pH less than 7.35 or greater than 7.5(54) [ ]f) Thyroid storm (55) [ ]g) Myxedema coma (55) [ ]XIII. Abdominal abnormalities with ANY ONE of the following(56)(57): [ ]a) Absent bowel sounds with complete ileus [ ]b) Signs of intestinal obstruction or peritonitis [E] [ ]c) Nausea and vomiting that cannot be controlled with outpatient or observation care [ ]XIV. Acute renal failure as indicated by new onset of ANY ONE of the following(9)(10)(11)(12)(13): [ ]a) A 3-fold rise in serum creatinine from baseline [ ]b) Serum creatinine greater than 4 mg/dL (354 micromoles/L) with acute rise greater than 0.5 mg/dL (44.2 micromoles/L) [ ]c) Reduction of more than 75% in estimated glomerular filtration rate from baseline [ ]d) Estimated glomerular filtration rate less than 35 mL/min/ 1.73m2 (0.59 mL/sec/1.73m2) in child up to 18 years of age [ ]e) Cessation of urine output indicated by ALL of the following: [ ]i) Adequate volume status [ ]ii) Inadequate urine output as indicated by ANY ONE of the following: [ ]1) Urine output less than 0.3 mL/kg/hr for 24 hours [ ]2) Anuria (urine output less than 0.1 mL/kg/hr) for 12 hours [ ]XV. Significant uremic complications as indicated by ANY ONE of the following(58)(59)(60): [ ]a) Outpatient therapy is ineffective or not feasible for ANY ONE of the following: [ ]i) Severe heart failure [ ]ii) Severehypertension [ ]iii) Pleural effusion [ ]iv) Pericarditis or pericardial effusion [ ]b) Cardiac arrhythmias of immediate concern [ ]c) Intractable nausea or vomiting [ ]d) Recurrent seizures [ ]e) Encephalopathy [ ]f) Bleeding abnormalities (eg, platelet dysfunction) with active (eg, gastrointestinal) bleeding [ ]g) Dialysis indicated before long-term access or ambulatory arrangements can be made [ ]h) Significant metabolic or electrolyte abnormalities (eg, severe acidosis or hyperkalemia) [ ]XVI. High fever or other high-risk infection situation as indicated by ANY ONE of the following(61)(62)(63)(64): [ ]a) Outpatient and observation care antimicrobial treatment unavailable, not effective, or not appropriate [ ]b) Documented bacteremia [ ]c) Temperature greater than 40.5 degrees C (104.9 degrees F) ( oral) [ ]d) Temperature greater than 39.5 degrees C (103.1 degrees F) ( oral) or less than 36 degrees C (96.8 degrees F) (rectal) that does not respond to e treatment and observation care [ ] XVII. Temperature less than 95 degrees F (35 degrees C)(rectal)(65) [ ] XVIII. Severe nutritional abnormalities as indicated by ALL of the following (66)(67): [ ]a) Inability to tolerate or establish sufficient oral or other enteral nutrition in outpatient setting [ ]b) Parenteral nutrition regimen need that must be implemented on inpatient basis [ ] XIX. Severe electrolyte abnormalities indicated by ALL of the following(68) (69)(70): [ ]a) Electrolytes and associated findings are not as expected for patient baseline or acceptable treatment effects. [ ]b) Severe abnormalities indicated by ANY ONE of the following: [ ]i) Sodium less than 130 mEq/L (mmol/L) (new) [ ]ii)Sodium less than 135 mEq/L (mmol/L) with ANY ONE of the following: [ ]1) Uncorrectable (to near normal or chronic baseline) after trial of outpatient and emergency treatment [ ]2) Altered mental status [ ]3) Seizures [ ]4) Severe medical etiology requiring inpatient management (eg, heart failure, hypovolemia) [ ]iii) Sodium greater than 155 mEq/L (mmol/L) [ ]iv) Sodium greater than 150 mEq/L (mmol/L) with ANY ONE of the following: [ ]1) Uncorrectable (to near normal or chronic baseline) with outpatient and emergency treatment [ ]2) Altered mental status [ ]3) Seizures [ ]4) Severe medical etiology (eg, hypovolemia, diabetes insipidus) [ ]v) Potassium less than 2.5 mEq/L (mmol/L) despite outpatient and emergency treatment [ ]vi) Potassium less than 3 mEq/L (mmol/L) with ANY ONE of the following: [ ]1) Weakness [ ]2) Cardiac abnormality (eg, arrhythmia, conduction disturbance) [ ]3) Cardiac ischemia [ ]4) Ileus [ ]5) Ongoing medical cause requiring inpatient management (eg, acute renal wasting or SIADH) [ ]6) Other severe symptoms [ ]vii) Potassium greater than 6.5 mEq/L (mmol/L) [ ]viii) Potassium greater than 5 mEq/L (mmol/L) with ANY ONE of the following: [ ]1) Uncorrectable (to near normal or chronic baseline) with outpatient and emergency treatment [ ]2) Severe ECG findings [F] [ ]3) Acute worsening of renal failure (creatinine greater than 2.5 mg/dL (221 micromoles/L) or significant elevation for age and size) [ ]4) Severe weakness [ ]5) Severe medical etiology (eg, hemolysis, infection, drug overdose) [ ]ix) Calcium less than 7 mg/dL (1.75 mmol/L) despite outpatient and emergency treatment (72) [ ]x) Calcium less than 8 mg/dL (2 mmol/L) with significant symptoms or findings; examples include(72): [ ]1) Altered mental status [ ]2) Muscle spasms [ ]3) Seizures [ ]4) Breathing difficulty [ ]5) Cardiac abnormality (eg, arrhythmia or conduction disturbance) [ ]xi) Calcium greater than 14 mg/dL (3.5 mmol/L)(72) [ ]xii) Calcium greater than 12 mg/dL (3 mmol/L) with ANY ONE of the following(72): [ ]1) Uncorrectable (to near normal or chronic baseline) with outpatient and emergency treatment [ ]2) Significant dehydration or hypovolemia as indicated by ALL of the following(70)(73)(74): [ ]A. Not resolved with initial treatments [ ]B. Clinically significant dehydration as indicated by ANY ONE of the following: [ ]a. Vomiting refractory to outpatient treatment (ie, precluding oral rehydration) [ ]b. Inability to drink [ ]c. Hypernatremia or other electrolyte abnormality unable to be corrected with outpatient and emergency treatment [ ]d. Failure to remain hydrated with outpatient therapy [ ]e. Reduced urine output [ ]f. Hypotension [ ]g. Serious cause for dehydration requiring acute hospitalization (eg, bowel obstruction, increased intracranial pressure, infectious cause) [ ]h. Child with ANY ONE of the following(75): [ ]1) Severe abdominal tenderness [ ]2) Adequate care not available at home [ ]3) Severe dehydration ( greater than 9% loss of body weight) [ ]4) Significant symptoms or findings; examples include: [ ]A. Altered mental status [ ]B. Cardiac abnormality (eg, arrhythmia, conduction disturbance) [ ]C. Malignant etiology requiring inpatient treatment [ ]xiii) Phosphorus less than 1 mg/dL (0.32 mmol/L) [ ]xiv) Phosphorus less than 1.5 mg/dL (0.48 mmol/L) with ANY ONE of the following: [ ]1) Patient unresponsive to outpatient and emergency treatment [ ]2) Significant symptoms or findings; examples include: [ ]A. Weakness [ ]B. Altered mental status [ ]C. Breathing difficulty [ ]D. Seizures [ ]E. Rhabdomyolysis [ ]xv) Phosphorus greater than 10 mg/dL (3.2 mmol/L) [ ]xvi) Phosphorus greater than 4.5 mg/dL (1.45 mmol/L) (new) with ANY ONE of the following: [ ]1) Severe medical etiology (eg, crush injury, acute renal failure) [ ]2) Associated hypocalcemia with significant findings; examples include: [ ]A. Neurologic symptoms [ ]B. Altered mental status [ ]C. Muscle spasms [ ]D. Seizures [ ]E. Breathing difficulty [ ]F. Cardiac abnormality (eg, arrhythmia, conduction disturbance) [ ]xvii) Magnesium less than 1 mg/dL (0.41 mmol/L) [ ]xviii) Magnesium less than 1.5 mg/dL (0.62 mmol/L) with ANY ONE of the following: [ ]1) Patient unresponsive to outpatient and emergency treatment [ ]2) Associated hypocalcemia with significant findings; examples include: [ ]A. Altered mental status [ ]B. Muscle spasms [ ]C. Seizures [ ]D. Breathing difficulty [ ]E. Cardiac abnormality (eg, arrhythmia , conduction disturbance) [ ]3) Associated hypokalemia (potassium less than 3 mEq/L (mmol/L)) with risk of arrhythmia [ ]xix) Magnesium greater than 4 mEq/L (2 mmol/L) [ ]xx) Magnesium greater than 2.5 mEq/L (1.25 mmol/L) with significant symptoms or findings; examples include: [ ]1) Weakness [ ]2) Altered mental status [ ]3) Cardiac abnormality (eg, arrhythmia, conduction disturbance) [ ]4) Breathing difficulty [ ]5) Severe medical etiology (eg, renal failure, hypovolemia) [ ]xxi) Uric acid greater than 20 mg/dL (1190 micromoles/L)(76) [ ]xxii) Uric acid greater than 8 mg/dL (476 micromoles/L) with significant symptoms or findings of tumor lysis syndrome; examples include(76): [ ]1) Creatinine greater than 1.5 times upper limit of normal [ ]2) Cardiac abnormality (eg, arrhythmia, conduction disturbance) [ ]3) Seizure [ ]XX. Acute blood loss causing significant abnormality as indicated by ANY ONE of the following(77)(78): [ ]a) Hemoglobin less than 10 g/dL (100 g/L) (not baseline) [ ]b) Hematocrit less than 30% (0.30) (not baseline) [ ]c) Repeat hematocrit decreased more than 2% (0.02) [ ]d) Uncontrolled bleeding [ ]XXI. Severe anemia indicated by ANY ONE of the following(78)(79): [ ]a) Altered mental status [ ]b) Chest pain [ ]c) Exertional dyspnea [ ]d) Syncope [ ]e) Other findings suggesting inadequate perfusion [ ]f) Treatment with transfusion or volume replacement is ineffective at resolving ANY ONE of the following [G]: [ ]i) Tachycardia for age [ ]ii) Orthostatic vital sign changes as indicated by ANY ONE of the following(80): [ ]1) Fall in SBP of 20 mm Hg or more 1 to 3 minutes after patient sits or stands from recumbent position [ ]2) Fall in DBP of 10 mm Hg or more 1 to 3 minutes after patient sits or stands from recumbent position [ ]XXII. High-risk low platelet count as indicated by ANY ONE of the following( 81)(82): [ ]a) Severe or life-threatening bleeding (eg, intracranial, major gastrointestinal, or extensive mucosal bleeding), with any reduced platelet count [ ]b) Platelet count less than 20,000/mm3 (20 x109/L) with any active bleeding [ ]c) Platelet count less than 10,000/mm3 (10 x109/L) with minor purpura or petechiae [ ]d) Platelet count less than 5000/mm3 (5 x109/L) [ ]e) Low platelet count with hemolytic anemia [ ]XXIII. Disseminated intravascular coagulation(77)(83) [ ]XXIV. Severe adverse drug or systemic toxin reaction requiring inpatient treatment; examples include(84)(85): [ ]a) Serotonin syndrome(86) [ ]b) Neuroleptic malignant syndrome(86) [ ]c) Cholinergic syndrome with severe symptoms (eg, bronchorrhea, weakness, mental status changes, seizures) [ ]d) Sympathetic syndrome with severe symptoms (eg, seizures, mental status changes, cardiac dysrhythmias) [ ]e) Anticholinergic syndrome [ ]XXV. Severe pain requiring acute inpatient management as indicated by ALL of the following (87)(88)(89): [ ]a) Continuous or frequent (eg, every 2 to 4 hours) parenteral analgesics required [H] [ ]b) Rapid improvement expected from treatment or acute intervention (eg, surgery, anesthesia procedure) [ ]XXVI.Severe behavioral health issues judged unmanageable at a lower level of care (eg, residential) in a patient who is ANY ONE of the following(91) [ ]a) Acutely suicidal [ ]b) A danger to self (eg, self-mutilating or suicidal behavior) [ ]c) A danger to others (eg, assaultive or homicidal behavior) [ ]d) Incapacitated because of grave disability (eg, inability to provide for self at lower level of care) (92) [ X]XXVII. Inpatient monitoring needed; examples include(1)(3)(87)(93)(94)(95)( 96): [ X]a) Vital signs, neurologic signs, or vascular checks more frequently than every 4 hours [ ]b) Cardiac or respiratory monitoring beyond the scope (eg, over 24 hours) of observation care [ ]c) Pulmonary artery catheter monitoring [ ]d) Suspected compartment syndrome(97) (98) [ ]e) Cerebral bleeding, hydrocephalus, or vasospasm monitoring [ ]f) Increased intracranial pressure or cerebral edema monitoring [ ]g) monitoring [ ]XXVIII. Treatment requiring inpatient care; examples include: [ ]a) IV fluid to replace significant ongoing losses (greater than 3 L/m2 per day)(53) [ ]b) High concentration oxygen (greater than 40%)(33)(99)(100) [ ]c) Frequent respiratory therapy (more frequently than every 4 hours) to maintain airflow rates greater than 60% of baseline(33)(99)(100) [ ]d) Epidural analgesia(87) [ ]e) IV anticoagulation, vasoactive, or antiarrhythmic medication(19 )(23) [ ]f) Acute thrombolytics (generally require 24 hours of observation )(101)(102) [ ]XXIX. Emergency procedures needed; examples include: [ ]a) Emergency inpatient surgery [ ]b) Temporary pacemaker placement(103) [ ]c) Chest tube placement with active evacuation (eg, suction, drainage)(104) [ ]d) Emergent cardioversion(105) [ ]e) Emergent cardiac or vascular procedures (eg, cardiac catheterization, angioplasty) (17)(18) [ ]f) Emergent dialysis access placement and institution(10)(106) [ ]g) Emergent pericardiocentesis(107) [ ]h) Emergent plasmapheresis or leukapheresis(83) [ ]i) Emergent tracheostomy The original [employer] content created by [employer] has been revised. The portions of the content which have been revised are identified through the use of italic text or in bold, and [facility] has neither reviewed nor approved the modified material. All other unmodified content is copyright [employer]. Please see references footnoted in the original [employer] edition 2016 Admission Criteria Met?: Yes IVONNE LARKIN May 15, 2016 16:15
[2016-05-15 19:15] VITALS: BP 122/80
[2016-05-15] MEDS ORDERED: ALTEPLASE 2 MG VIAL INT CAT PRN (19:30)
[2016-05-15] MEDS: ATORVASTATIN CALCIUM 20 MG TABLET PO SCH (19:33)
[2016-05-15] MEDS: MIRTAZAPINE 30 MG TABLET PO SCH (19:33)
[2016-05-15] MEDS: MELATONIN 3 MG TABLET PO SCH (19:33)
[2016-05-15] MEDS: traZODone 100 MG TABLET. PO SCH (19:33)
[2016-05-15] MEDS: NYSTATIN TOPICAL POWDER 30GM BOTTLE. TP SCH (19:34)
[2016-05-16] MEDS: NAFCILLIN 2 GM in IV NORMAL SALINE 100ML 100 ML IV SCH ×6 (00:08→20:27)
[2016-05-16] MEDS: CALCIUM CARBONATE 500 MG TAB.CHEW PO PRN ×2 (03:20→16:04)
[2016-05-16 06:08] VITALS: BP 125/73
[2016-05-16] MEDS: GUAIFENESIN DM 600/30MG TAB.ER.12H. PO SCH ×2 (08:53→20:27)
[2016-05-16] MEDS: THIAMINE 100 MG TABLET. PO SCH (08:53)
[2016-05-16] MEDS: MAGNESIUM OXIDE 400 MG TABLET PO SCH ×3 (08:53→20:28)
[2016-05-16] MEDS: FOLIC ACID 1 MG TABLET PO SCH (08:53)
[2016-05-16] MEDS: LINAGLIPTIN 5 MG TABLET PO SCH (08:53)
[2016-05-16] MEDS: PANTOPRAZOLE 40 MG TABLET. PO SCH ×2 (08:54→20:27)
[2016-05-16] MEDS: ASPIRIN 81 MG TAB.CHEW PO SCH (08:54)
[2016-05-16] MEDS: TAMSULOSIN 0.4 MG CAP.ER.24H. PO SCH (08:54)
[2016-05-16] MEDS: METFORMIN 500 MG TABLET. PO SCH ×2 (08:54→16:04)
[2016-05-16] MEDS: NYSTATIN TOPICAL POWDER 30GM BOTTLE. TP SCH ×2 (08:54→20:28)
[2016-05-16] MEDS: POTASSIUM CHLORIDE 20 MEQ TABLET.ER. PO SCH ×2 (11:51→16:04)
[2016-05-16 19:41] VITALS: BP 123/83
[2016-05-16] MEDS: MIRTAZAPINE 30 MG TABLET PO SCH (20:27)
[2016-05-16] MEDS: traZODone 100 MG TABLET. PO SCH (20:27)
[2016-05-16] MEDS: MELATONIN 3 MG TABLET PO SCH (20:28)
[2016-05-16] MEDS: ATORVASTATIN CALCIUM 20 MG TABLET PO SCH (20:28)
[2016-05-17] MEDS: NAFCILLIN 2 GM in IV NORMAL SALINE 100ML 100 ML IV SCH ×6 (00:36→20:02)
[2016-05-17 06:18] VITALS: BP 111/68
[2016-05-17] MEDS ORDERED: IV NORMAL SALINE 100ML 100 ML ONE (07:22)
[2016-05-17] MEDS: GUAIFENESIN DM 600/30MG TAB.ER.12H. PO SCH ×2 (07:25→20:02)
[2016-05-17] MEDS: LINAGLIPTIN 5 MG TABLET PO SCH (07:25)
[2016-05-17] MEDS: THIAMINE 100 MG TABLET. PO SCH (07:26)
[2016-05-17] MEDS: FOLIC ACID 1 MG TABLET PO SCH (07:26)
[2016-05-17] MEDS: PANTOPRAZOLE 40 MG TABLET. PO SCH ×2 (07:26→20:03)
[2016-05-17] MEDS: ASPIRIN 81 MG TAB.CHEW PO SCH (07:26)
[2016-05-17] MEDS: METFORMIN 500 MG TABLET. PO SCH ×2 (07:26→16:39)
[2016-05-17] MEDS: MAGNESIUM OXIDE 400 MG TABLET PO SCH ×3 (07:26→20:02)
[2016-05-17] MEDS: TAMSULOSIN 0.4 MG CAP.ER.24H. PO SCH (07:26)
[2016-05-17] MEDS: NYSTATIN TOPICAL POWDER 30GM BOTTLE. TP SCH ×2 (07:32→20:03)
[2016-05-17] MEDS: POTASSIUM CHLORIDE 20 MEQ TABLET.ER. PO SCH ×2 (11:33→16:39)
[2016-05-17 17:46] VITALS: BP 117/76
[2016-05-17] MEDS: ATORVASTATIN CALCIUM 20 MG TABLET PO SCH (20:02)
[2016-05-17] MEDS: MELATONIN 3 MG TABLET PO SCH (20:02)
[2016-05-17] MEDS: traZODone 100 MG TABLET. PO SCH (20:03)
[2016-05-17] MEDS: MIRTAZAPINE 30 MG TABLET PO SCH (20:03)
[2016-05-18] MEDS: NAFCILLIN 2 GM in IV NORMAL SALINE 100ML 100 ML IV SCH ×6 (00:28→19:48)
[2016-05-18 05:47] VITALS: BP 115/67
[2016-05-18] MEDS: ASPIRIN 81 MG TAB.CHEW PO SCH (08:08)
[2016-05-18] MEDS: LINAGLIPTIN 5 MG TABLET PO SCH (08:08)
[2016-05-18] MEDS: FOLIC ACID 1 MG TABLET PO SCH (08:08)
[2016-05-18] MEDS: THIAMINE 100 MG TABLET. PO SCH (08:08)
[2016-05-18] MEDS: MAGNESIUM OXIDE 400 MG TABLET PO SCH ×3 (08:08→19:50)
[2016-05-18] MEDS: TAMSULOSIN 0.4 MG CAP.ER.24H. PO SCH (08:08)
[2016-05-18] MEDS: METFORMIN 500 MG TABLET. PO SCH ×2 (08:08→16:36)
[2016-05-18] MEDS: GUAIFENESIN DM 600/30MG TAB.ER.12H. PO SCH ×2 (08:08→19:51)
[2016-05-18] MEDS: POTASSIUM CHLORIDE 20 MEQ TABLET.ER. PO SCH ×2 (08:09→16:36)
[2016-05-18] MEDS: NYSTATIN TOPICAL POWDER 30GM BOTTLE. TP SCH ×2 (08:09→19:52)
[2016-05-18] MEDS: PANTOPRAZOLE 40 MG TABLET. PO SCH ×2 (08:09→19:50)
[2016-05-18] MEDS: FLUCONAZOLE 100 MG TABLET. PO SCH (16:37)
[2016-05-18] MEDS ORDERED: IV NORMAL SALINE 250ML 250 ML ONE (16:39)
[2016-05-18 19:06] VITALS: BP 121/68
[2016-05-18] MEDS: MIRTAZAPINE 30 MG TABLET PO SCH (19:50)
[2016-05-18] MEDS: ATORVASTATIN CALCIUM 20 MG TABLET PO SCH (19:50)
[2016-05-18] MEDS: MELATONIN 3 MG TABLET PO SCH (19:50)
[2016-05-18] MEDS: traZODone 100 MG TABLET. PO SCH (19:50)
--- NOTE | 2016-05-18 22:48 | PN ---
DATE: 05/18/2016 SWING BED PROGRESS NOTE SUBJECTIVE: He continues to complain of sore throat and hoarseness. Indeed, having seen him previously, his voice is a lot more hoarse than previously. He does have a slight sore throat. He has not smoked in about one month. He is on nafcillin q. 4 hours and will finish on 05/20/2016. OBJECTIVE: VITAL SIGNS: Blood pressure 115/67, pulse 101, respirations 20, pulse ox is 95% on room air, temperature 98.1. GENERAL: The patient's eyes are clear. Nose is patent. His throat, he has a very sensitive gag. There is not much postnasal drip in the posterior pharynx. No exudate. NECK: Supple. LUNGS: Clear. CARDIOVASCULAR: Regular rhythm and rate. ABDOMEN: He does have hoarseness; however, he is hoarse. ASSESSMENT: 1. Hoarseness questionable etiology in a tobacco user and must consider yeast in someone who has been on antibiotics for this prolonged period of time. 2. Methicillin-susceptible Staphylococcus aureus bacteremia, on nafcillin, getting close to finishing course. 3. Tobacco use disorder. 4. Diabetes. PLAN: We will give him a short course of Diflucan to see if that helps also and told him he would need to have a scope as an outpatient ____ and probably a [facility]. VALERIANO ALEJANDRO DO DR: AIDA/lesvia JOB#: [id number] / [id number]
[2016-05-19] MEDS: NAFCILLIN 2 GM in IV NORMAL SALINE 100ML 100 ML IV SCH ×7 (00:20→23:45)
[2016-05-19 05:06] VITALS: BP 105/70
[2016-05-19] MEDS: PANTOPRAZOLE 40 MG TABLET. PO SCH ×2 (08:42→19:27)
[2016-05-19] MEDS: TAMSULOSIN 0.4 MG CAP.ER.24H. PO SCH (08:42)
[2016-05-19] MEDS: ASPIRIN 81 MG TAB.CHEW PO SCH (08:42)
[2016-05-19] MEDS: LINAGLIPTIN 5 MG TABLET PO SCH (08:42)
[2016-05-19] MEDS: THIAMINE 100 MG TABLET. PO SCH (08:42)
[2016-05-19] MEDS: METFORMIN 500 MG TABLET. PO SCH ×2 (08:42→17:02)
[2016-05-19] MEDS: FOLIC ACID 1 MG TABLET PO SCH (08:42)
[2016-05-19] MEDS: NYSTATIN TOPICAL POWDER 30GM BOTTLE. TP SCH ×2 (08:42→19:28)
[2016-05-19] MEDS: MAGNESIUM OXIDE 400 MG TABLET PO SCH ×3 (08:42→19:28)
[2016-05-19] MEDS: FLUCONAZOLE 100 MG TABLET. PO SCH (08:42)
[2016-05-19] MEDS: GUAIFENESIN DM 600/30MG TAB.ER.12H. PO SCH ×2 (08:43→19:27)
[2016-05-19] MEDS: POTASSIUM CHLORIDE 20 MEQ TABLET.ER. PO SCH ×2 (12:16→17:02)
[2016-05-19 18:56] VITALS: BP 105/65
[2016-05-19] MEDS: ATORVASTATIN CALCIUM 20 MG TABLET PO SCH (19:27)
[2016-05-19] MEDS: MELATONIN 3 MG TABLET PO SCH (19:27)
[2016-05-19] MEDS: traZODone 100 MG TABLET. PO SCH (19:27)
[2016-05-19] MEDS: MIRTAZAPINE 30 MG TABLET PO SCH (19:28)
[2016-05-20] MEDS: NAFCILLIN 2 GM in IV NORMAL SALINE 100ML 100 ML IV SCH ×3 (03:51→12:00)
[2016-05-20 04:05] VITALS: BP 101/67
[2016-05-20] MEDS: GUAIFENESIN DM 600/30MG TAB.ER.12H. PO SCH (08:23)
[2016-05-20] MEDS: MAGNESIUM OXIDE 400 MG TABLET PO SCH (08:23)
[2016-05-20] MEDS: ASPIRIN 81 MG TAB.CHEW PO SCH (08:24)
[2016-05-20] MEDS: PANTOPRAZOLE 40 MG TABLET. PO SCH (08:24)
[2016-05-20] MEDS: FOLIC ACID 1 MG TABLET PO SCH (08:24)
[2016-05-20] MEDS: FLUCONAZOLE 100 MG TABLET. PO SCH (08:24)
[2016-05-20] MEDS: TAMSULOSIN 0.4 MG CAP.ER.24H. PO SCH (08:24)
[2016-05-20] MEDS: THIAMINE 100 MG TABLET. PO SCH (08:24)
[2016-05-20] MEDS: POTASSIUM CHLORIDE 20 MEQ TABLET.ER. PO SCH (08:24)
[2016-05-20] MEDS: METFORMIN 500 MG TABLET. PO SCH (08:24)
[2016-05-20] MEDS: LINAGLIPTIN 5 MG TABLET PO SCH (08:24)
[2016-05-20] MEDS: NYSTATIN TOPICAL POWDER 30GM BOTTLE. TP SCH (08:26)
[2016-05-20] MEDS ORDERED: MAGN400T22 PO (10:13)
[2016-05-20] MEDS ORDERED: PANT40TA5 PO (10:13)
[2016-05-20] MEDS ORDERED: NYST60PO TP (10:13)
--- NOTE | 2016-05-20 22:12 | DS ---
DATE OF DISCHARGE: 05/20/2016 SWING BED DISCHARGE SUMMARY DISCHARGE DIAGNOSES: 1. MSSA bacteremia. 2. IV antibiotics for 4 weeks. 3. Tobacco use disorder. 4. Type 2 diabetes. 5. Hoarseness, questionable etiology. 6. Hypomagnesemia. 7. Viral pharyngitis. SWING BED COURSE: This is a 65-year-old gentleman who was admitted to swing bed status for rehab and to complete 4 weeks of nafcillin for MSSA bacteremia. The patient had a long recovery back from his hospitalization. The patient had an uneventful stay, did complain of a sore throat. Exam was essentially negative several times, did treat him for yeast because of the prolonged period of IV antibiotics and advised him strongly to [facility]. PHYSICAL EXAMINATION: VITAL SIGNS: On the day of discharge, his blood pressure was 101/67, pulse was 101, respirations 20, pulse ox 97% on room air. DISPOSITION: To home. He is to have this hoarseness followed up at the [facility]. 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 I also encouraged him to quit smoking. VALERIANO ALEJANDRO DO DR: AIDA/lesvia JOB#: [id number] / [id number]
== END 2016-05-20 13:04 | disposition home or self-care (01) | DRG 177 ==
LOC: 1 SOUTH 10:26
PROVIDERS: ADMIT Family Medicine; ATTEND Family Medicine
DX: J85.0 Gangrene and necrosis of lung (principal); E43 Unspecified severe protein-calorie malnutrition; B95.61 Methicillin susceptible Staphylococcus aureus infection as the cause of diseases classified elsewhere; E11.9 Type 2 diabetes mellitus without complications; F10.20 Alcohol dependence, uncomplicated; G47.00 Insomnia, unspecified; I10 Essential (primary) hypertension; K21.9 Gastro-esophageal reflux disease without esophagitis; Z72.0 Tobacco use; Z86.19 Personal history of other infectious and parasitic diseases; Z91.19 Patient's noncompliance with other medical treatment and regimen; Z68.21 Body mass index [BMI] 21.0-21.9, adult; J02.8 Acute pharyngitis due to other specified organisms
CPT/HCPCS: 36415; 80048; 80053; 82140; 82947; 83036; 83735; 84436; 84443; 84480; 84481; 85027; 85610; 85651; 86140; 87070; 87880; J1815; J2997; J3475; J7050; 97110; 97116; 97530; 97535

== ENCOUNTER 2021-03-15 14:53 | Emergency (ER) | payer OTHER ==
[~2021-03-15] VITALS: Ht 175.3 cm; Wt 53.0 kg
[~2021-03-15 14:53] MED LIST: ALBU2.5V8 IH; ASPI-630 PO; ATOR40TA59 PO; FOLI1TAB16 PO; INSU100C SQ; INSU100V8 SQ; MAGN400T22 PO; MELA3TAB4 PO; METF10007 PO; MIRT-8 PO; MULT-208 PO; NAFC2FRO IV; NITR0.4T24 SL; NYST15CR TP; NYST60PO TP; PANT40TA6 PO; SAXA5TAB PO; TAMS0.4C2 PO; THIA100T8 PO; TIOT18CA IH; TRAZ-125 PO; ZINC57OI TP
[2021-03-15] MEDS ORDERED: IV NORMAL SALINE 1,000ML 1,000 ML IV ONE ×2 (15:15→15:45)
[2021-03-15 15:45] LABS: BASO % 0 % (0-3); EOS # 0.1 x10^3/uL (0.0-0.7); EOS % 0 % (0-3); HEMATOCRIT 35.2 % (39.0-53.0); HEMOGLOBIN 11.2 g/dL (13.0-17.5); LYMPH # 1.1 x10^3/uL (1.0-4.8); LYMPH % 4 % (24-48); MEAN CORPUSCULAR HEMOGLOBIN 29 pg (25-35); MEAN CORPUSCULAR HGB CONC 32 g/dL (31-37); MEAN CORPUSCULAR VOLUME 90 fL (79-100); MONO # 0.5 x10^3/uL (0.0-1.1); MONO % 2 % (0-9); NEUT # 24.4 x10^3uL (1.8-7.7); NEUT % 94 % (31-73); PLATELET COUNT 309 x10^3/uL (140-400); RED BLOOD COUNT 3.93 x10^6/uL (4.30-5.70); RED CELL DISTRIBUTION WIDTH 14.7 % (11.5-14.5); WHITE BLOOD COUNT 26.1 x10^3/uL (4.0-11.0)
[2021-03-15] MEDS ORDERED: NOREPINEPHRINE BITARTRATE 8 MG in IV DEXTROSE 5% 250 ML IV PRN (15:45)
[2021-03-15] MEDS ORDERED: EPINEPHrine SYRINGE 1 MG/10 ML SYRINGE. IV ONE (15:45)
[2021-03-15] MEDS ORDERED: ATROPINE 0.5 MG/5 ML DISP.SYRIN. IV ONE (15:45)
--- NOTE | 2021-03-15 16:06 | RAD ---
EXAMINATION: Chest radiograph. VIEWS: 1 COMPARISON: None INDICATION:80 years, Male, altered mental status. FINDINGS: Normal cardiomediastinal silhouette. Bilateral perihilar and basilar pulmonary infiltrates. No pleura l effusion or pneumothorax. No acute osseous process. Endotracheal tube tip locates approximately 7.9 cm proximal to the humphrey. Enteric tube tip terminate s within the stomach. Median sternotomy wires; broken first 2 wires. Posterior hardware fusion in the thoracolumbar spine. Surgical clips in the mediastinum. IMPRESSION: Bilateral perihilar and basilar pulmonary atelectatic changes versus infiltrates. Electronically signed by: Keren Barakat MD (03/15/2021 4:04 PM) [facility]
[2021-03-15] MEDS ORDERED: NOREPINEPHRINE BITARTRATE 4 MG/4 ML VIAL. IV ONE (16:14)
[2021-03-15] MEDS ORDERED: IV DEXTROSE 5% 250 ML IV ONE (16:14)
[2021-03-15] MEDS ORDERED: PIP/TAZO PER PHARMACY MC PRN (16:15)
[2021-03-15] MEDS ORDERED: IV DEXTROSE 5 %-0.45 % NACL 1,000 ML IV ONE (16:30)
[2021-03-15] MEDS ORDERED: ASPIRIN RECTAL 300 MG SUPP. PR ONE (16:30)
[2021-03-15] MEDS ORDERED: HEPARIN for IV BOLUS 10,000 UNIT/10 ML VIAL. IV ONE (16:30)
[2021-03-15] MEDS ORDERED: HEPARIN 25,000UTS/250ML PREMIX 250 ML IV PRN (16:30)
[2021-03-15] MEDS ORDERED: DEXTROSE 50% 25 GM / 50ML DISP.SYRIN. IV ONE ×3 (16:30→18:00)
[2021-03-15] MEDS ORDERED: HEPARIN for IV BOLUS 10,000 UNIT/10 ML VIAL. IV PRN (16:30)
[2021-03-15 16:37] LABS: % BANDS 7 % (0-9); % LYMPHS 8 % (24-48); % MONOS 3 % (0-10); % SEGS 82 % (35-66); PLT ESTIMATE ADEQUATE (ADEQUATE)
[2021-03-15 16:43] LABS: ALBUMIN 2.2 g/dL (3.4-5.0); ALBUMIN/GLOBULIN RATIO 0.6 (1.0-1.7); CALCIUM 7.2 mg/dL (8.5-10.1); CREATININE 2.3 mg/dL (0.7-1.3); GFR 28.3; MAGNESIUM 2.2 mg/dL (1.8-2.4); TOTAL BILIRUBIN 0.6 mg/dL (0.2-1.0); TOTAL PROTEIN 6.2 g/dL (6.4-8.2)
[2021-03-15 16:47] LABS: BARBITURATES NEG (NEG); BENZODIAZEPINES NEG (NEG); CANNABINOIDS NEG (NEG); COCAINE POS (NEG); METHADONE NEG (NEG); OPIATES NEG (NEG); PHENCYCLIDINE NEG (NEG)
[2021-03-15 16:49] LABS: POTASSIUM 6.5 mmol/L (3.5-5.1)
[2021-03-15 16:49] LABS: AMPHETAMINE/METHAMPHETAMINE POS (NEG)
--- NOTE | 2021-03-15 17:09 | RAD ---
CT HEAD AND C-SPINE WO, CT MAXILLOFACIAL WITHOUT CONTRAST dated 03/15/2021 4:52 PM Indication:Reason: altered mental status, pain, facial contusion / Spl. Instructions: / History: Comparison: No comparison is available. Technique: Helical noncontrast images were performed. Sagittal and coronal reconstructions were obtai ariel. One or more of the following individualized dose reduction techniques were utilized for this examinat ion: 1. Automated exposure control 2. Adjustment of the mA and/or kV according to patient size 3. Use of iterative reconstruction technique Findings: CT head: There is no apparent intracranial hemorrhage or abnormal extra-axial fluid collection. There is some patchy low attenuation in the cerebral white matter consistent with chronic small vessel isc hemic injury. No other area of abnormal density is seen in the brain. The ventricles and basilar cist erns are normally positioned. Bone windows show no apparent fracture of the skull. CT FACIAL BONES: No fracture is seen. The orbital floors appear intact. There is mild deviation of th e nasal septum toward the right anteriorly and left posteriorly. The patient is nearly edentulous, wi th a few stubs of teeth remaining. There are some periapical lucencies around mandibular teeth. There are some secretions in the ethmoid air cells and sphenoid sinus. The sinuses are otherwise clear. CT cervical spine: No significant malalignment is seen. Slight anterior positioning of C3 on C4 as we ll as C4 on C5 is thought likely degenerative. There is no apparent loss of vertebral body height thr ough the cervical levels. Mild wedging of T1 appears chronic. No fracture line is seen. There is some disc narrowing at C5-6 and C6-7. Evaluation of the soft tissue components of the canal is limited wi thout intrathecal contrast. There is no apparent destructive process. Incidental note is made of presence of ET and OG tubes. IMPRESSION: CT head: No apparent acute abnormality. CT cervical spine: Degenerative changes. No acute abnormality. CT FACIAL BONES: No apparent facial fracture. Electronically signed by: Tristan Taylor Jr., MD (03/15/2021 5:07 PM) [id number]
[2021-03-15] MEDS ORDERED: DEXTROSE 5% IV SCH (17:15)
[2021-03-15] MEDS ORDERED: CALCIUM GLUCONATE 1,000 MG/10 ML VIAL IV ONE (17:15)
[2021-03-15] MEDS ORDERED: SODIUM BICARBONATE IVF IV SCH (17:15)
[2021-03-15 17:19] LABS: BILIRUBIN,URINE MOD (NEG); CLARITY,URINE CLEAR; COLOR,URINE YELLOW; GLUCOSE,URINE NEG (NEG)
[2021-03-15 17:20] LABS: BACTERIA,URINE 0 /HPF (0-FEW); HYALINE CASTS, URINE OCC /HPF; NITRITE,URINE NEG (NEG); RBC,URINE 0 /HPF (0-2); SQUAMOUS EPITHELIAL CELL,UR FEW /LPF; WAXY CASTS,URINE OCC /HPF; WBC,URINE OCC /HPF (0-4)
--- NOTE | 2021-03-15 17:21 | RAD ---
EXAM: XR PELVIS 1-2V, XR KNEE 1-2 VIEWS 03/15/2021 5:13 PM CLINICAL INDICATION: Pain, contusion, found unresponsive. COMPARISON: None TECHNIQUE: Standing AP view of the bilateral knees and lateral view of the right left knee. AP view of the pelvis. FINDINGS: Knees: No acute fracture or malalignment of either knee. Mild medial and lateral compartment joint sp yolande bilaterally. There is no joint effusion. There is mild infrapatellar soft tissue swelling bilater ally. Surgical clips are seen in the left posterior knee and leg. Pelvis: The hips are externally rotated, limiting evaluation of the femoral necks, particularly on th e left. There is no definite displaced fracture. Alignment is normal. There is severe right hip joint space narrowing with small subchondral cysts and osteophytes. Mild left hip joint space narrowing. P ubic symphysis and sacroiliac joints are maintained. There is gaseous distention of multiple loops of bowel in the lower abdomen, partially obscured and the sacrum. Upper lumbar fusion hardware is incom pletely visualized. IMPRESSION: 1. No acute osseous abnormality of the knees. 2. No definite acute osseous abnormality of the pelvis. External rotation of the hips limits evaluati on for nondisplaced femoral neck fractures. 3. Mild gaseous distention of multiple loops of small bowel. Electronically signed by: Hannah Yu MD (03/15/2021 5:19 PM) [id number]
[2021-03-15 17:24] LABS: ACETAMIN < 2 mcg/mL (10-30); SALIC 3.9 mg/dL (2.8-20.0)
[2021-03-15 17:25] LABS: BGAS PH 7.12 (7.35-7.46)
[2021-03-15] MEDS ORDERED: ROCURONIUM 50 MG/5 ML VIAL. ONE (18:00)
[2021-03-15] MEDS ORDERED: EPINEPHrine SYRINGE 1 MG/10 ML SYRINGE. ONE (18:00)
[2021-03-15] MEDS ORDERED: ETOMIDATE 40 MG/20 ML VIAL. ONE (18:00)
[2021-03-15] MEDS ORDERED: ATROPINE 1 MG/10 ML DISP.SYRINGE. ONE (18:00)
[2021-03-15] MEDS ORDERED: SODIUM BICARB ADULT 8.4% 50 MEQ/50 ML DISP.SYRIN. ONE (18:00)
--- NOTE | 2021-03-15 18:03 | EKG ---
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
--- NOTE | 2021-03-15 18:04 | EKG ---
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
--- NOTE | 2021-03-15 18:07 | EKG ---
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
[2021-03-15] MEDS ORDERED: PIPERACILLIN/TAZOBACTAM 3.375 GM VIAL IV ONE (18:34)
[2021-03-15] MEDS ORDERED: IV NORMAL SALINE 100ML 100 ML ONE (18:36)
[2021-03-15] MEDS ORDERED: DEXTROSE 50% 25 GM / 50ML DISP.SYRIN. IV PRN (19:00)
[2021-03-15] MEDS ORDERED: INSULIN REGULAR 100 UNIT/ML 3ML VIAL. IV ONE (19:30)
--- NOTE | 2021-03-15 19:35 | RAD ---
EXAM: XR CHEST 1V 03/15/2021 6:16 PM CLINICAL INDICATION: Status post left IJ central line placement. COMPARISON: Chest radiograph 03/15/2021 3:30 PM TECHNIQUE: AP view of the chest FINDINGS: There is new right IJ central venous catheter with tip projecting over the upper superior vena cava. The endotracheal tube terminates about 7.6 cm above the humphrey, unchanged. There are surgi castro changes of median sternotomy. Upper 2 sternotomy wires are fractured, unchanged. The heart is nor mal in size. Lungs are hyperexpanded with unchanged mild bilateral interstitial opacities. No pleural effusion or pneumothorax. Thoracolumbar fusion hardware is incompletely evaluated. IMPRESSION: 1. New left IJ central venous catheter with tip over the superior vena cava. 2. No pneumothorax. 3. Unchanged mild bilateral interstitial opacities. Electronically signed by: Hannah Yu MD (03/15/2021 7:33 PM) [id number]
[2021-03-15] MEDS ORDERED: SODIUM BICARBONATE IVF 150 MEQ in IV DEXTROSE 5% 1,000 ML IV ONE (20:00)
[2021-03-15 20:38] VITALS: BP 100/57
[2021-03-15 20:58] LABS: BGAS PH 7.23 (7.35-7.46)
--- NOTE | 2021-03-15 20:58 | PHYS DOC ---
Past History Past Medical History: Alcoholism, Diabetes, GERD, Hypertension Additional Past Medical Histor: HEP C, MALNUTRITION, POLYSUBSTANCE ABUSE Past Medical History Limited secondary to acuity of condition and altered mental status Past Surgical History: Other Additional Past Surgical Histo: Chest surgery, spinal fusion Past Surgical History Limited secondary to acuity of condition and altered mental status Alcohol Use: Heavy Social History Limited secondary to acuity of condition and altered mental status General Adult EDM: Chief Complaint: HYPOGLYCEMIA HPI: HPI: 70-year-old male presents via EMS as a Austin Mcgrath that was found unresponsive by neighbor "facedown in his bathroom "just prior to arrival. It is unclear when last known well was however EMS reports that a neighbor thinks he might have been seen in the last 1 to 2 days. Patient was significantly cold to touch per EMS. Patient also with poor inspiratory effort and therefore EMS placed a oropharyngeal airway and utilized [id number] assistance prior to arrival. EMS also placed an IO line to right tibia. History of present illness limited secondary to altered mental status/acuity of condition Review of Systems: Review of Systems: Review of systems limited secondary to altered mental status and acuity of condition Current Medications: Current Meds: Current Medications Medications (Trade) Dose Ordered Sig/Jordan Start Time Stop Time Status Last Admin Dose Admin Aspirin (Aspirin Rectal Supp) 300 mg 1X ONCE 03/15/21 16:30 03/15/21 18:57 DC 03/15/21 18:48 300 MG Atropine Sulfate (ATROPINE 0.5mg SYRINGE) 1 mg 1X ONCE 03/15/21 15:45 03/15/21 15:46 DC 03/15/21 15:45 1 MG Calcium Gluconate (Calcium Gluconate) 1,000 mg 1X ONCE 03/15/21 17:15 03/15/21 18:57 DC 03/15/21 18:48 1,000 MG Dextrose (Dextrose 50%-Water Syringe) 12.5 gm PRN Q15MIN PRN 03/15/21 19:00 03/15/21 18:00 12.5 GM Dextrose/Sodium Chloride 1,000 ml @ 150 mls/hr 1X ONCE 03/15/21 16:30 03/15/21 23:09 03/15/21 18:47 150 MLS/HR Epinephrine HCl (EPINEPHrine SYRINGE) 1 mg 1X ONCE 03/15/21 15:45 03/15/21 15:46 DC 03/15/21 15:45 1 MG Heparin Sodium (Porcine) (Heparin Sodium) 1,250 unit PRN Q6HRS PRN 03/15/21 16:30 Heparin Sodium/ Dextrose 250 ml @ 6.36 mls/hr CONT PRN 03/15/21 16:30 03/15/21 19:00 6.36 MLS/HR Insulin Human Regular (HumuLIN R VIAL) 10 unit 1X ONCE 03/15/21 19:30 03/15/21 19:31 DC 03/15/21 19:30 10 UNIT Lactulose (Lactulose) 20 gm TID 03/15/21 21:00 Norepinephrine Bitartrate (Levophed) 4 mg STK-MED ONCE 03/15/21 16:14 03/15/21 16:15 DC Norepinephrine Bitartrate 8 mg/ Dextrose 258 ml @ 9.675 mls/ hr CONT PRN 03/15/21 15:45 Piperacillin Sod/ Tazobactam Sod (Zosyn Per Pharmacy) 1 each PRN DAILY PRN 03/15/21 16:15 Piperacillin Sod/ Tazobactam Sod (Zosyn) 3.375 gm STK-MED ONCE 03/15/21 18:34 03/15/21 18:34 DC Piperacillin Sod/ Tazobactam Sod 2.25 gm/Sodium Chloride 50 ml @ 100 mls/hr Q6HRS 03/16/21 00:00 Sodium Bicarbonate 150 meq/Dextrose 1,150 ml @ 125 mls/hr 1X ONCE 03/15/21 20:00 03/16/21 05:11 Sodium Chloride 100 ml @ As Directed STK-MED ONCE 03/15/21 18:36 03/15/21 18:36 DC Allergies: Allergies: Allergies Coded Allergies Type Severity Reaction Last Updated Verified azithromycin Allergy Unknown 03/15/21 Yes Physical Exam: PE: Constitutional: Unresponsive, elderly, cachectic HENT: Normocephalic, left cheek stage 2 pressure ulcer, oropharyngeal airway in place per EMS Eyes: Pupils sluggish to equal bilaterally to light, conjunctiva normal, no d ischarge Neck: Stiff, no deformity Lungs & Thorax: Poor inspiratory effort, bradypnea, requiring bag valve mask assistance, midline vertical healed sternotomy scar noted Abdomen: Soft, no distention Skin: Cold to touch, multiple stage II pressure ulcers noted including left cheek, right ASIS, sacrum, left lateral chest wall, bilateral anterior knees, and left wrist, Extremities: No deformity, no edema Neurologic: GCS 3, unresponsive Psychologic: Limited, judgment abnormal Current Patient Data: Labs: Laboratory Tests Test 03/15/21 15:18 03/15/21 16:00 03/15/21 17:07 03/15/21 18:58 White Blood Count 26.1 x10^3/uL (4.0-11.0) H Red Blood Count 3.93 x10^6/uL (4.30-5.70) L Hemoglobin 11.2 g/dL (13.0-17.5) L Hematocrit 35.2 % (39.0-53.0) L Mean Corpuscular Volume 90 fL (79-100) Mean Corpuscular Hemoglobin 29 pg (25-35) Mean Corpuscular Hemoglobin Concent 32 g/dL (31-37) Red Cell Distribution Width 14.7 % (11.5-14.5) H Platelet Count 309 x10^3/uL (140-400) Neutrophils (%) (Auto) 94 % (31-73) H Lymphocytes (%) (Auto) 4 % (24-48) L Monocytes (%) (Auto) 2 % (0-9) Eosinophils (%) (Auto) 0 % (0-3) Basophils (%) (Auto) 0 % (0-3) Neutrophils # (Auto) 24.4 x10^3uL (1.8-7.7) H Lymphocytes # (Auto) 1.1 x10^3/uL (1.0-4.8) Monocytes # (Auto) 0.5 x10^3/uL (0.0-1.1) Eosinophils # (Auto) 0.1 x10^3/uL (0.0-0.7) Basophils # (Auto) 0.0 x10^3/uL (0.0-0.2) Segmented Neutrophils % 82 % (35-66) H Band Neutrophils % 7 % (0-9) Lymphocytes % 8 % (24-48) L Monocytes % 3 % (0-10) Platelet Estimate Adequate (ADEQUATE) Prothrombin Time 18.9 SEC (9.4-11.4) H Prothrombin Time INR 1.8 (0.9-1.1) H Activated Partial Thromboplast Time 41 SEC (23-33) H Sodium Level 131 mmol/L (136-145) L Potassium Level 6.5 mmol/L (3.5-5.1) *H Chloride Level 90 mmol/L (98-107) L Carbon Dioxide Level 18 mmol/L (21-32) L Anion Gap 23 (6-14) H Blood Urea Nitrogen 52 mg/dL (8-26) H Creatinine 2.3 mg/dL (0.7-1.3) H Estimated GFR (Cockcroft-Gault) 28.3 BUN/Creatinine Ratio 23 (6-20) H Glucose Level 228 mg/dL (70-99) H Lactic Acid Level 1.3 mmol/L (0.4-2.0) Calcium Level 7.2 mg/dL (8.5-10.1) L Magnesium Level 2.2 mg/dL (1.8-2.4) Total Bilirubin 0.6 mg/dL (0.2-1.0) Aspartate Amino Transferase (AST) 224 U/L (15-37) H Alanine Aminotransferase (ALT) 52 U/L (16-63) Alkaline Phosphatase 143 U/L (46-116) H Ammonia 129 mcmol/L (11-34) H Creatine Kinase 6792 U/L (39-308) H Creatine Kinase MB (Mass) 226.5 ng/mL (0.0-3.6) H Creatine Kinase MB Relative Index 3.3 % (0-4) Troponin I High Sensitivity 509 ng/L (4-75) H OO-Jeq-A-Type Natriuretic Peptide 12507 pg/mL (0-124) H Total Protein 6.2 g/dL (6.4-8.2) L Albumin 2.2 g/dL (3.4-5.0) L Albumin/Globulin Ratio 0.6 (1.0-1.7) L Salicylates Level 3.9 mg/dL (2.8-20.0) Salicylate Last Dose Date Unk Salicylate Last Dose Time Unk Acetaminophen Level < 2 mcg/mL (10-30) L Acetaminophen Last Dose Date Unk Acetaminophen Last Dose Time Unk Ethyl Alcohol Level < 10 mg/dL (0-10) Urine Collection Type Clean catch Urine Color Yellow Urine Clarity Clear Urine pH 6.5 Urine Specific [place] 1.020 Urine Protein 100 mg/dl (NEG-TRACE) Urine Glucose (UA) Neg mg/dL (NEG) Urine Ketones (Stick) 15 mg/dL (NEG) Urine Blood Trace (NEG) Urine Nitrite Neg (NEG) Urine Bilirubin Mod (NEG) Urine Urobilinogen Dipstick 2.0 mg/dL (0.2 mg/dL) Urine Leukocyte Esterase Neg (NEG) Urine RBC 0 /HPF (0-2) Urine WBC Occ /HPF (0-4) Urine Squamous Epithelial Cells Few /LPF Urine Bacteria 0 /HPF (0-FEW) Urine Hyaline Casts Occ /HPF Urine Waxy Casts Occ /HPF Urine Opiates Screen Neg (NEG) Urine Methadone Screen Neg (NEG) Urine Barbiturates Neg (NEG) Urine Phencyclidine Screen Neg (NEG) Urine Amphetamine/Methamphetamine Pos (NEG) Urine Benzodiazepines Screen Neg (NEG) Urine Cocaine Screen Pos (NEG) Urine Cannabinoids Screen Neg (NEG) Urine Ethyl Alcohol Neg (NEG) Blood pH 7.12 (7.35-7.46) *L Blood Gas PCO2 44 mmHg (35-46) Blood Gas PO2 597 mmHg (71-100) H Blood Gas HCO3 14 mmol/L (21-28) L Arterial Bld O2 Saturation (Calc) 100 % (92-99) H FiO2 100 % Glucose (Fingerstick) 395 mg/dL (70-99) H Vital Signs: Vital Signs Date Time Temp Pulse Resp B/P (MAP) Pulse Ox O2 Delivery O2 Flow Rate FiO2 03/15/21 20:38 85.1 63 100/57 (71) 74 Bag Valve Mask 03/15/21 20:16 20 EKG: EKG: @1545 Wide complex rhythm at 79bpm, LBBB, QRS 242ms, QT/QTc 426/495ms @1559 afib at 62bpm, with occasional wide complex QRS, NO ST elevation, QRS 134ms, QT/QTc 538/549ms @1601 Wide complex rhythm at 70bpm, LBBB, QRS 200ms, QT/QTc 498/541ms Radiology/Procedures: Radiology/Procedures: PROCEDURE: PORTABLE CHEST 1V EXAMINATION: Chest radiograph. VIEWS: 1 COMPARISON: None INDICATION:80 years, Male, altered mental status. FINDINGS: Normal cardiomediastinal silhouette. Bilateral perihilar and basilar pulmonary infiltrates. No pleural effusion or pneumothorax. No acute osseous process. Endotracheal tube tip locates approximately 7.9 cm proximal to the humphrey. Enteric tube tip terminates within the stomach. Median sternotomy wires; broken first 2 wires. Posterior hardware fusion in the thoracolumbar spine. Surgical clips in the mediastinum. IMPRESSION: Bilateral perihilar and basilar pulmonary atelectatic changes versus infiltrates. Electronically signed by: Keren Barakat MD (03/15/2021 4:04 PM) [facility] PROCEDURE: CT HEAD AND CERVICAL SPINE WO CT HEAD AND C-SPINE WO, CT MAXILLOFACIAL WITHOUT CONTRAST dated 03/15/2021 4:52 PM Indication:Reason: altered mental status, pain, facial contusion / Spl. Instructions: / History: Comparison: No comparison is available. Technique: Helical noncontrast images were performed. Sagittal and coronal reconstructions were obtained. One or more of the following individualized dose reduction techniques were utilized for this examination: 1. Automated exposure control 2. Adjustment of the mA and/or kV according to patient size 3. Use of iterative reconstruction technique Findings: CT head: There is no apparent intracranial hemorrhage or abnormal extra-axial fluid collection. There is some patchy low attenuation in the cerebral white matter consistent with chronic small vessel ischemic injury. No other area of abnormal density is seen in the brain. The ventricles and basilar cisterns are normally positioned. Bone windows show no apparent fracture of the skull. CT FACIAL BONES: No fracture is seen. The orbital floors appear intact. There is mild deviation of the nasal septum toward the right anteriorly and left posteriorly. The patient is nearly edentulous, with a few stubs of teeth remaining. There are some periapical lucencies around mandibular teeth. There are some secretions in the ethmoid air cells and sphenoid sinus. The sinuses are otherwise clear. CT cervical spine: No significant malalignment is seen. Slight anterior positioning of C3 on C4 as well as C4 on C5 is thought likely degenerative. There is no apparent loss of vertebral body height through the cervical levels. Mild wedging of T1 appears chronic. No fracture line is seen. There is some disc narrowing at C5-6 and C6-7. Evaluation of the soft tissue components of the canal is limited without intrathecal contrast. There is no apparent destructive process. Incidental note is made of presence of ET and OG tubes. IMPRESSION: CT head: No apparent acute abnormality. CT cervical spine: Degenerative changes. No acute abnormality. CT FACIAL BONES: No apparent facial fracture. Electronically signed by: Tristan Taylor Jr., MD (03/15/2021 5:07 PM) [id number] EXAM: XR PELVIS 1-2V, XR KNEE 1-2 VIEWS CLINICAL INDICATION: Pain, contusion, found unresponsive. COMPARISON: None TECHNIQUE: Standing AP view of the bilateral knees and lateral view of the right left knee. AP view of the pelvis. FINDINGS: Knees: No acute fracture or malalignment of either knee. Mild medial and lateral compartment joint space bilaterally. There is no joint effusion. There is mild infrapatellar soft tissue swelling bilaterally. Surgical clips are seen in the left posterior knee and leg. Pelvis: The hips are externally rotated, limiting evaluation of the femoral necks, particularly on the left. There is no definite displaced fracture. Alignment is normal. There is severe right hip joint space narrowing with small subchondral cysts and osteophytes. Mild left hip joint space narrowing. Pubic s ymphysis and sacroiliac joints are maintained. There is gaseous distention of multiple loops of bowel in the lower abdomen, partially obscured and the sacrum. Upper lumbar fusion hardware is incompletely visualized. IMPRESSION: 1. No acute osseous abnormality of the knees. 2. No definite acute osseous abnormality of the pelvis. External rotation of the hips limits evaluation for nondisplaced femoral neck fractures. 3. Mild gaseous distention of multiple loops of small bowel. Electronically signed by: Hannah Yu MD (03/15/2021 5:19 PM) [id number] PROCEDURE: CHEST AP ONLY EXAM: XR CHEST 1V 03/15/2021 6:16 PM CLINICAL INDICATION: Status post left IJ central line placement. COMPARISON: Chest radiograph 03/15/2021 3:30 PM TECHNIQUE: AP view of the chest FINDINGS: There is new right IJ central venous catheter with tip projecting over the upper superior vena cava. The endotracheal tube terminates about 7.6 cm above the humphrey, unchanged. There are surgical changes of median sternotomy. Upper 2 sternotomy wires are fractured, unchanged. The heart is normal in size. Lungs are hyperexpanded with unchanged mild bilateral interstitial opacities. No pleural effusion or pneumothorax. Thoracolumbar fusion hardware is incompletely evaluated. IMPRESSION: 1. New left IJ central venous catheter with tip over the superior vena cava. 2. No pneumothorax. 3. Unchanged mild bilateral interstitial opacities. Electronically signed by: Hannah Yu MD (03/15/2021 7:33 PM) [id number] Heart Score: C/O Chest Pain: Yes HEART Score for Chest Pain: HEART Score for Chest Pain Response (Comments) Value History Moderately Suspicious 1 ECG Nonspecific Repolarizatio 1 Age > 65 2 Risk Factors >3 Risk Factors or Hx CAD 2 Troponin >3 x Normal Limit 2 Total 8 Risk Factors: Risk Factors: DM, Current or recent (<one month) smoker, HTN, HLP, family history of CAD, obesity. Risk Scores: Score 0 - 3: 2.5% MACE over next 6 weeks - Discharge Home Score 4 - 6: 20.3% MACE over next 6 weeks - Admit for Clinical Observation Score 7 - 10: 72.7% MACE over next 6 weeks - Early Invasive Strategies Course & Med Decision Making: Course & Med Decision Making Pertinent Labs and Imaging studies reviewed. (See chart for details) Elderly patient presents via EMS as a "Austin Mcgrath" that was found unresponsive facedown in his bathroom by a neighbor. Patient was significantly cool to touch upon arrival with hypotension. IV fluid hydration given. Signs of pressure ulcers noted. Concerned that patient has been down on ground for extended period of time. Patient with GCS of 3. Patient with decreased respirations requiring assistance with [id number]. Oropharyngeal airway placed by EMS along with right tibial IO prior to arrival. Upon arrival patient did receive a Accu-Chek which was found to be "low ". Dextrose immediately provided through IO. Patient had limited improvement with GCS up to 7 (eye 1, verbal 1, motor 5). O2 sats also significantly low. Decision to protect airway given altered mental status along with decreased O2 sats. Intubation successfully performed (see procedure). X-ray obtained with good positioning of ET tube and possible infiltrations. Empiric antibiotics given. Labs obtained and posted to chart. Patient to go for CT head and other x-rays. Patient subsequently became significantly bradycardic. Atropine 1 mg provided at which time patient soon after with loss of pulse. ACLS protocol initiated with epi x1 and 1 round of CPR with successful return of spontaneous circulation. EKG with wide-complex rhythm concerning for new onset left bundle branch block. Patient converted to a rhythm concerning for atrial fibrillation and then converted back to wide- complex rhythm/left bundle branch block. EKGs and patient's case discussed with Dr. Watkins (cardiology) who requests continued supportive care and transfer to [facility] for further evaluation at which time patient will receive cardiology consultation. Given patient's unstable condition we will hold emergent catheterization at this time. Patient placed on Levophed drip. CT head without acute finding. Labs returned with significant abnormalities including hyperkalemia, acute renal insufficiency, elevated BNP, a significantly elevated troponin. Hyperkalemia addressed. Heparin bolus and drip initiated. Patient also with dip in blood sugar despite receiving dextrose. A D5 half-normal saline initially provided. Ammonia significantly elevated. NGT in position and therefore lactulose initiated. Central line successfully placed to [facility] given acuity of condition. Of note: UDS positive for methamphetamines and cocaine. Patient requiring admission for further evaluation and treatment. Discussed with Dr. Faria (hospitalist) who is in agreement with transfer to [facility] for ICU admission. Dr. Faria requests continuation of IV fluids to include D5W with 3 amps of bicarb at 125 mL/h. Dragon Disclaimer: Dragon Disclaimer: This electronic medical record was generated, in whole or in part, using a voice recognition dictation system. Departure Departure: Impression: Primary Impression: Hypoglycemia Additional Impressions: NSTEMI (non-ST elevated myocardial infarction) Cardiopulmonary arrest with successful resuscitation LBBB (left bundle branch block) Hyperkalemia Renal insufficiency Elevated brain natriuretic peptide (BNP) level Acute metabolic encephalopathy Polysubstance abuse Hypotension Qualified Codes: I95.9 - Hypotension, unspecified Leukocytosis Qualified Codes: D72.829 - Elevated white blood cell count, unspecified Pulmonary infiltrates on CXR Disposition: [address] [place] [address] ([facility]) Admitting Physician: Bethanie Faria Condition: CRITICAL Referrals: PCP,NO (PCP) Central Line Central Line : Central Line Lumen: triple Central Line Procedure: sterile drapes applied, sterile dressing applied Central Line Postion: internal jugular (L) Anesthesia: Lidocaine (1%) cc's of anesthesia: 3 Complications: none Central Line Post Position: sutured, position confirmed w/ CXR Progress Emergent consent utilized. Time out performed. Hand hygiene utilized. Sterile attire donned. Wound cleaned with ChloraPrep. Sterile drapes applied. Bedside ultrasound obtained with successful visualization of oval-shaped, thin-walled, compressible, hypoechoic structure consistent for left IJ. Anesthesia obtained via a 25-gauge hypodermic needle with (1) mL's of lidocaine 1% without epinephrine. Successful placement of needle to left IJ under bedside ultrasound guidance with good blood draw. Guidewire placed. Skin cut with 11 blade scalpel and catheter dilator passed x2. Catheter able to be successfully placed over guidewire under Seldinger technique. Guidewire successfully removed. Triple-lumen catheter with successful drawback and flush to all 3 ports. Catheter sutured in place x3 with silk suture after utilization of 1% lidocaine without epinephrine x2 mL sterile dressing applied. Patient tolerated procedure well and without difficulty. X-ray obtained with confirmation of good position of triple-lumen catheter to SVC as well as no signs of pneumothorax. Intubation Intubation : Intubation Method: orotracheal Tube Size (cm): 7.5 Breath Sounds after Intubation: equal Intubation Complications: no complications Post Intubation Xray: Yes Progress/Xray Impression: See radiology reports Progress Emergent consent utilized. Time out performed. Hand hygiene utilized. RSI performed with utilization of 20 mg of etomidate as well as 50 mg of rocuronium. [place] scope utilized with successful visualization of larynx. Successful placement of a 7.5 cuffed ET tube tube visualized with removal of stylette. ET tube marked 23 cm at the lip. [id number] with equal chest rise upon auscultation. Patient with positive CO2 color monitor change. Good fogging in the tube also visualized. Patient placed on vent. Chest x-ray obtained with visualization of good positioning of ET tube. Critical Care Time Critical care time was 60 minutes which includes time at bedside, spent in discussion of patient's care with specialists and/or family members, with interpretation of laboratory and/or radiological studies and is exclusive of procedures. DOM RODRIGUEZ DO Mar 15, 2021 20:58
[2021-03-15] MEDS ORDERED: LACTULOSE 20 GM/30 ML SOLUTION. PO SCH (21:00)
[2021-03-15 21:22] LABS: INFLUENZA A PATIENT NEGATIVE (NEGATIVE); INFLUENZA B PATIENT NEGATIVE (NEGATIVE)
[2021-03-15] MEDS ORDERED: ROCURONIUM 50 MG/5 ML VIAL. IV ONE (22:30)
[2021-03-15] MEDS ORDERED: ETOMIDATE 40 MG/20 ML VIAL. INJ ONE (22:30)
[2021-03-16] MEDS ORDERED: PIPERACILLIN/TAZOBACTAM 2.25 GM in IV NORMAL SALINE 50ML 50 ML IV SCH
--- NOTE | 2021-03-16 10:09 | PN ---
DATE: 03/15/2021 SUBJECTIVE: The patient is a 70-year-old male patient who presented to the Emergency Room of [facility] unresponsive. He was found to be hypoglycemic and hypothermic and developed cardiopulmonary arrest from which he was successfully resuscitated. He was found to have bilateral lung infiltrate, probably acute on chronic kidney disease, hyperkalemia, severe metabolic acidosis, hypotension, received 2 liters of fluid, started on Levophed. His troponin was elevated, has left bundle branch block and therefore, he was started also on a heparin drip as he has severe metabolic acidosis. He was also started on a bicarb drip and was transferred to [facility] to continue on heparin drip, bicarbonate drip as well as antibiotics and to monitor his blood sugar and adjust insulin as needed. He was also on Levophed for hypotension. When he arrived to the [facility], we did actually give him 2 more liters of fluid and repeated all his labs and as of this morning, his white cell count was slightly down at 24,000 from 26,000. His arterial blood gas showed that his pH has improved to 7.43, a pCO2 of 31, pO2 149, bicarbonate 20, and his oxygen saturation was 99% on FiO2 of 40%. His chemistry showed sodium was low at 126, potassium is normalized to 4.1, chloride 89, bicarbonate 20, anion gap of 17, BUN 54, creatinine was 2.2. Estimated GFR was 29 mL per minute. His glucose was 409 and calcium was 6.2. Total bilirubin is normal. AST, ALT, alkaline phosphatase are all elevated. His troponin I high sensitivity has risen to 1654 and beta natriuretic peptide was 15,649. Total protein was 6.3, albumin was 2.1. His chest x-ray showed there is heart and mediastinal contours are stable. The patient is status post median sternotomy and thoracolumbar fusion, unchanged endotracheal tube tip approximately 6.9 cm from the humphrey unchanged. There is an NG tube in place, unchanged. There is mild patchy bilateral airspace disease. The lungs are hyperinflated. No consolidation or pleural effusion or pneumothorax. PHYSICAL EXAMINATION: GENERAL: When I examined him this morning, the patient was resting slightly propped up in bed, in no apparent respiratory distress. He was pale, cachectic, but not jaundiced or cyanosed, no lymphadenopathy, no thyromegaly, no jugular venous distention. No lower limb edema. VITAL SIGNS: His heart rate was 130, blood pressure was 84/44, temperature was 99.5, respiratory rate was 20 and oxygen saturation was 100% on FiO2 of 40%. HEAD, EYES, EARS, NOSE, AND THROAT: Normocephalic, atraumatic. Neck is supple. He has no orotracheal and orogastric tube in place. NECK: Supple. HEART: Showed normal first and second heart sounds, no gallop or murmur. CHEST: Shows central trachea, equal bilateral chest expansion, air entry, vesicular breath sounds. No crepitation or rhonchi. ABDOMEN: Scaphoid, soft, nontender. NEUROLOGIC: He was sedated. His intake was 3159. Output was 1135. LABORATORY DATA: His lab work this morning showed a white cell count 24,000, hemoglobin 12, hematocrit 37, MCV 86 and platelet count of 387,000 with automated differential showed 92% polymorphs, 4% lymphocytes and 4% monocytes. Serum sodium was 126, potassium 4.1, chloride 89, bicarbonate 20, anion gap of 17, BUN 54, creatinine 2.2. Estimated GFR was 29 mL per minute. His glucose was 409, calcium was 6.2. Total bilirubin normal. AST, ALT, alkaline phosphatase are all elevated. His troponin I high sensitivity was 1654. Beta natriuretic peptide was 15,649. Total protein was 6.3, albumin was 2.1. ASSESSMENT: This is a 70-year-old male patient who presented to the Emergency Room of [facility] with: 1. Metabolic encephalopathy. He was hypoglycemic, hypothermic. 2. He developed shortly after arrival cardiopulmonary arrest from which he was successfully resuscitated. He was diagnosed with a left bundle branch block and no ST segment elevation myocardial infarction for which he was started on heparin drip. 3. Bilateral lung infiltrate, for which he was started on Zosyn. 4. Hyperkalemia and acute kidney injury for which he received 2 liters of fluid. 5. Metabolic acidosis, hyperkalemia, for which he was started on bicarbonate drip after receiving calcium gluconate and 1 amp of sodium bicarbonate. 6. The patient has rhabdomyolysis. He has coagulopathy and elevated ammonia, most likely due to chronic alcoholic liver disease and history of hepatitis C. PLAN: My plan is to obviously have consulted the funds transfer clerk, infectious disease specialist, crusher dry ground mica, and bundle wrapper. RANULFO DR: Fady TID: [id number]
== END 2021-03-15 21:30 | disposition short-term general hospital (02) ==
LOC: ER 14:53 → MERGE 14:53 → EDBD 14:53 → ER 21:30
DX: E11.649 Type 2 diabetes mellitus with hypoglycemia without coma (principal); I21.4 Non-ST elevation (NSTEMI) myocardial infarction; I46.9 Cardiac arrest, cause unspecified; I44.7 Left bundle-branch block, unspecified; E87.5 Hyperkalemia; N28.9 Disorder of kidney and ureter, unspecified; R79.89 Other specified abnormal findings of blood chemistry; G93.41 Metabolic encephalopathy; F19.10 Other psychoactive substance abuse, uncomplicated; I95.9 Hypotension, unspecified; D72.829 Elevated white blood cell count, unspecified; R91.8 Other nonspecific abnormal finding of lung field; F10.20 Alcohol dependence, uncomplicated; K21.9 Gastro-esophageal reflux disease without esophagitis; I10 Essential (primary) hypertension; Z20.822 Contact with and (suspected) exposure to COVID-19; Z88.1 Allergy status to other antibiotic agents; Y90.0 Blood alcohol level of less than 20 mg/100 ml
CPT/HCPCS: 31500; 36415; 36556; 70450; 70486; 71045; 72125; 72170; 73560; 80053; 80307; 80329; 81001; 82140; 82553; 82803; 82947; 83605; 83735; 83880; 84484; 85007; 85025; 85610; 85730; 87040; 87428; 93005; 96361; 96365; 96366; 96375; 96376; 99291; C9803; G0480; J0171; J0461; J0610; J1644; J1815; J7030; U0003; 94002